=== PATIENT | male | born 1950 | race Caucasian/White ===

== ENCOUNTER 2016-09-25 16:38 | Inpatient (IN) | payer MEDICARE, OTHER ==
--- NOTE | 2016-09-25 16:49 | EDM.PDOC ---
ED HPI GENERAL MEDICAL PROBLEM - General Chief Complaint: General Stated Complaint: fever, fall Time Seen by Provider: 09/25/16 16:45 Source of Information: Reports: Patient, Usp Records (Limited), Old Records History Limitations: Reports: Altered Mental Status, Other - History of Present Illness INITIAL COMMENTS - FREE TEXT/NARRATIVE: The patient was brought to the emergency room via transport vehicle from [facility] in [place] for evaluation of some nonspecific progressive confusion, dyspnea, hypoxia, and fever of 100.6. Prior to transport. He did have a minor fall at 14:45 hours this afternoon with the patient using his walker at that time with no significant injury including head injury, loss of consciousness, pain, etc. He is an extremely poor historian secondary to his confusion and probable baseline mental status Onset: Today, Unknown/Unsure Onset Date: 09/25/16 Onset Time: 14:45 Duration: Constant Location: Reports: Other (No apparent pain) Associated Symptoms: Reports: Confusion, Fever/Chills, Shortness of Breath Treatments SOFTWARE RECRUITER: Reports: Other (see below) (None) - Related Data Allergies Allergy/AdvReac Type Severity Reaction Status Date / Time acetaminophen [From NyQuil] Allergy Cannot Verified 09/25/16 16:53 Remember dextromethorphan Allergy Cannot Verified 09/25/16 16:53 [From NyQuil] Remember doxylamine [From NyQuil] Allergy Cannot Verified 09/25/16 16:53 Remember loxapine Allergy Cannot Verified 09/25/16 16:53 Remember perphenazine Allergy Cannot Verified 09/25/16 16:53 Remember pseudoephedrine [From NyQuil] Allergy Cannot Verified 09/25/16 16:53 Remember thiothixene Allergy Cannot Verified 09/25/16 16:53 Remember Home Meds: Home Meds Aspirin [Halfprin] 81 mg PO DAILY@09/25/16 [History] Atenolol [Tenormin] 25 mg PO DAILY@09/25/16 [History] Benztropine [Cogentin] 1 mg PO 08,20 09/25/16 [History] Calcium Carbonate/Vitamin D3 [Os-[place]ew[place]ne 500+D] 1 each PO BEDTIME 09/25/16 [History] ClonazePAM [KlonoPIN] 1 mg PO 08,15,18 09/25/16 [History] Divalproex Sodium [Depakote ER] 1,000 mg PO BEDTIME 09/25/16 [History] Docusate Sodium [Colace] 200 mg PO ,09/25/16 [History] Docusate Sodium/Sennosides [Senna Plus] 1 tab PO ,09/25/16 [History] Fish Oil/[place]-3 Fatty Acids [Fish Oil] 1 each PO ,09/25/16 [History] Insulin Aspart [NovoLOG] 15 unit SUBCUT TIDAC 09/25/16 [History] Insulin Glarg,Human.Rec.Analog [LantUS] 80 unit SUBCUT DAILY@09/25/16 [ History] Levothyroxine [Synthroid] 50 mcg PO DAILY@09/25/16 [History] Lisinopril [Prinivil] 10 mg PO ,09/25/16 [History] Methyl Salicylate/Menthol [Thera-Gesic Analgesic] 1 applic TP QID PRN 09/25/16 [ History] Multivitamin [Daily Sara] 1 each PO BEDTIME 09/25/16 [History] Potassium Chloride [Klor-Con 10] 10 meq PO ,09/25/16 [History] QUEtiapine [SEROquel] 300 mg PO 06,11,16 09/25/16 [History] Simvastatin [Zocor] 10 mg PO BEDTIME 09/25/16 [History] Tamsulosin [Flomax] 0.4 mg PO BEDTIME 09/25/16 [History] Vitamin E 400 unit PO DAILY@09/25/16 [History] hydrOXYzine HCl [Atarax] 50 mg PO BID PRN 09/25/16 [History] Past Medical History HEENT History: Reports: Allergic Rhinitis, Cataract, Glaucoma, Hard of Hearing, Other (See Below) Other HEENT History: Preglaucoma, bilateral presbycusis, eyelid dermatochalasis Cardiovascular History: Reports: High Cholesterol, Hypertension Respiratory History: Reports: COPD, Other (See Below) Other Respiratory History: COPD by chest x-ray Gastrointestinal History: Reports: Chronic Constipation Genitourinary History: Reports: BPH, Urinary Incontinence Musculoskeletal History: Reports: Arthritis, Osteoarthritis Neurological History: Reports: Other (See Below) Other Neuro History: Chronic resting tremor tremor, generalized weakness Psychiatric History: Reports: Anxiety, Depression, Schizophrenia, Other (See Below) Endocrine/Metabolic History: Reports: Diabetes, Type II, Hypothyroidism, IDDM Social & Family History - Family History Family Medical History: Unobtainable - Living Situation & Occupation Living situation: Reports: Extended Care Facility ([facility] in [place], [facility]) ED ROS GENERAL - Review of Systems Review Of Systems: ROS reveals no pertinent complaints other than HPI. ED EXAM, GENERAL - Physical Exam Exam: See Below Exam Limited By: Altered Mental Status General Appearance: Alert, Mild Distress (Mild dyspnea), Other (Moderate confusion) Eye Exam: Bilateral Eye: EOMI, Normal Inspection (No nystagmus), PERRL Ears: Normal Canal, Normal TMs, Hearing Loss (Mild bilateral presbycusis) Nose: Normal Mucosa, No Blood, Clear Rhinorrhea (Mild bilateral) Throat/Mouth: Normal Lips, Normal Gums. No: Normal Teeth (Complete absent dentition), Normal Oropharynx, Normal Voice, No Airway Compromise, Dysphagia, Perioral Cyanosis Head: Atraumatic, Normocephalic. No: Facial Swelling, Facial Tenderness, Sinus Tenderness Neck: Normal Inspection, Supple, Non-Tender, Full Range of Motion, Carotid Bruit (Mild bilateral carotid bruits). No: Lymphadenopathy (L), Lymphadenopathy (R), Thyromegaly Respiratory/Chest: No Accessory Muscle Use, Chest Non-Tender, Respiratory Distress (Mild), Rales (Diffuse bilateral). No: Pleural Rub, Retractions Cardiovascular: Normal Peripheral Pulses, No JVD, No Murmur, No Rub, Tachycardia (Regular rate). No: No Edema (Dependent edema as below), Gallop/S3 , Gallop/S4, Friction Rub Peripheral Pulses: 2+: Radial (L), Radial (R), Dorsalis Pedis (L), Dorsalis Pedis (R) GI/Abdominal: Normal Bowel Sounds, Soft, Non-Tender, No Organomegaly, No Distention, No Abnormal Bruit, No Mass, Pelvis Stable, Hernia (2 cm nonincarcerated umbilical hernia). No: Guarding (Male) Exam: Deferred Rectal (Males) Exam: Deferred Back Exam: Normal Inspection, Full Range of Motion. No: CVA Tenderness (L), CVA Tenderness (R), Muscle Spasm Extremities: Normal Range of Motion, Non-Tender, Normal Capillary Refill, Pedal Edema (Trace to +1 bilateral pedal/pretibial edema). No: Leg Pain Neurological: Alert, Normal Reflexes (Negative Babinski's), Confused (Moderate) , Disoriented (Time in place), Other (Stable by history chronic resting tremor and head and extremities with borderline cogwheeling) Psychiatric: Normal Affect, Normal Mood Skin Exam: Warm, Dry, Intact, Normal Color, No Rash. No: Diaphoretic, Wound/ Incision Lymphatic: No Adenopathy EKG INTERPRETATION EKG Date: 09/25/16 Time: 17:17 Rhythm: Other (Sinus tachycardia) Rate (Beats/Min): 118 [place]: Normal (Neutral cardiac axis) P-Wave: Present (Mild diffuse biphasic P waves with extreme poor R-wave progression in the anterior leads) QRS: Normal (QRS interval of 0.09 seconds with possible Q waves noted in lead 3) ST-T: Normal QT: Normal NV/PQ Interval: 0.17 seconds Comparison: NA - No Prior EKG EKG Interpretation Comments: 1. No acute ischemic changes 2. Sinus tachycardia Course - Vital Signs Last Recorded V/S: Last Vital Signs Temp 37.2 C 09/25/16 18:30 Pulse 107 H 09/25/16 18:30 Resp 34 H 09/25/16 18:30 BP 137/67 09/25/16 18:30 Pulse Ox 93 L 09/25/16 18:30 Vital Signs - 24 hr 09/25/16 09/25/16 09/25/16 16:38 16:54 17:05 Temperature [ 37.5 C Oral] Temperature [ Temporal] Pulse, 123 H 122 H 119 H Peripheral [ Apical] Respiratory 25 H 26 H 23 H Rate Blood Pressure 173/77 H 167/81 H 118/85 [Left Upper Arm ] O2 Sat by Pulse 87 L 91 L 93 L Oximetry 09/25/16 09/25/16 09/25/16 17:35 18:05 18:30 Temperature [ Oral] Temperature [ 37.2 C Temporal] Pulse, 116 H 111 H 107 H Peripheral [ Apical] Respiratory 27 H 27 H 34 H Rate Blood Pressure 140/79 146/75 H 137/67 [Left Upper Arm ] O2 Sat by Pulse 92 L 93 L 93 L Oximetry - Orders/Labs/Meds Orders: Active Orders 24 hr Category Date Time Status Cardiac Monitoring [RC] . DIRECTED Care 09/25/16 16:51 Active EKG Documentation Completion [RC] ASDIRECTED Care 09/25/16 17:15 Active Oxygen Therapy [RC] CONTINUOUS Care 09/25/16 16:53 Active Peripheral IV Care [RC] . DIRECTED Care 09/25/16 16:53 Active Pulse Oximetry [RC] CONTINUOUS Care 09/25/16 16:53 Active RT Aerosol Therapy [RC] ASDIRECTED Care 09/25/16 16:55 Active Chest 1V Frontal [CR] Stat Exams 09/25/16 16:52 Taken CULTURE BLOOD [BC] Stat Lab 09/25/16 16:55 Received CULTURE BLOOD [BC] Stat Lab 09/25/16 16:55 Received CULTURE SPUTUM + SMEAR [RM] Routine Lab 09/25/16 16:51 Uncollected Sodium Chloride 0.9% [Saline Flush] Med 09/25/16 16:50 Active 10 ml FLUSH ASDIRECTED PRN cefTRIAXone [Rocephin] 1 gm Med 09/25/16 17:45 Active Sodium Chloride 0.9% [Normal Saline] 100 ml IV Q12H Blood Culture x2 Reflex Set [OM.PC] Urgent Oth 09/25/16 16:51 Ordered Obtain Past Medical Record [OM.PC] Urgent Oth 09/25/16 16:53 Active Peripheral IV Insertion Adult [OM.PC] Routine Oth 09/25/16 16:53 Ordered Medication Orders Ceftriaxone Sodium 1 gm/ (Sodium Chloride) 100 mls @ 200 mls/hr IV Q12H LISANDRA Last Admin: 09/25/16 17:45 Dose: 200 mls/hr Sodium Chloride (Saline Flush) 10 ml FLUSH ASDIRECTED PRN PRN Reason: Keep Vein Open Labs: Laboratory Tests 09/25/16 09/25/16 09/25/16 Range/Units 16:55 16:55 16:55 WBC 9.2 (4.0-10.2) K/uL RBC 4.56 (4.33-5.41) M/uL Hgb 14.1 (13.1-16.8) g/dL Hct 39.8 (39.0-49.0) % MCV 87.3 (84.0-98.0) fL MCH 30.9 (28.2-33.3) pg MCHC 35.4 (31.7-36.0) g/dL RDW 14.2 H (11.2-14.1) % Plt Count 125 L (150-350) K/uL Neut % (Auto) 77.3 (45.0-80.0) % Lymph % (Auto) 13.9 (10.0-50.0) % Patrick % (Auto) 8.0 (2.0-14.0) % Eos % (Auto) 0.5 (0.0-5.0) % Baso % (Auto) 0.3 (0.0-2.0) % Neut # (Auto) 7.10 H (1.40-7.00) K/uL Lymph # (Auto) 1.28 (0.50-3.50) K/uL Patrick # (Auto) 0.74 (0.00-1.00) K/uL Eos # (Auto) 0.05 (0.00-0.50) K/uL Baso # (Auto) 0.03 (0.00-0.20) K/uL PT (9.8-11.7) SEC INR APTT (23.5-30.0) SEC D-Dimer, Quantitative 161 (0-400) ng/mL Sodium 137 (136-145) mmol/L Potassium 3.8 (3.5-5.1) mmol/L Chloride 103 (98-107) mmol/L Carbon Dioxide 26.6 (21.0-32.0) mmol/L BUN 19 H (7-18) mg/dL Creatinine 0.88 (0.51-1.17) mg/dL Est Cr Clr Drug Dosing 95.84 mL/min Estimated GFR (MDRD) > 60 mL/min Glucose 191 H (74-106) mg/dL Lactic Acid (0.4-2.0) mmol/L Uric Acid 7.7 H (2.6-7.2) mg/dL Calcium 8.4 L (8.5-10.1) mg/dL Magnesium 1.4 L (1.8-2.4) mg/dL Total Bilirubin 0.5 (0.2-1.0) mg/dL AST 20 (15-37) U/L ALT 26 (12-78) U/L Alkaline Phosphatase 61 (46-116) IU/L Creatine Kinase 70 (26-308) U/L Creatine Kinase Index 0.0 (0.0-2.5) % CK-MB (CK-2) 0.00 (0.00-3.60) ng/mL Troponin I 0.006 (0.000-0.056) ng/mL Ogc-Y-Ipvyulldect Pept 115 (0-125) pg/mL Total Protein 6.5 (6.4-8.2) g/dL Albumin 3.2 L (3.4-5.0) g/dL TSH, Ultra Sensitive 1.763 (0.358-3.740) mIU/mL 09/25/16 09/25/16 Range/Units 16:55 16:55 WBC (4.0-10.2) K/uL RBC (4.33-5.41) M/uL Hgb (13.1-16.8) g/dL Hct (39.0-49.0) % MCV (84.0-98.0) fL MCH (28.2-33.3) pg MCHC (31.7-36.0) g/dL RDW (11.2-14.1) % Plt Count (150-350) K/uL Neut % (Auto) (45.0-80.0) % Lymph % (Auto) (10.0-50.0) % Patrick % (Auto) (2.0-14.0) % Eos % (Auto) (0.0-5.0) % Baso % (Auto) (0.0-2.0) % Neut # (Auto) (1.40-7.00) K/uL Lymph # (Auto) (0.50-3.50) K/uL Patrick # (Auto) (0.00-1.00) K/uL Eos # (Auto) (0.00-0.50) K/uL Baso # (Auto) (0.00-0.20) K/uL PT 11.3 (9.8-11.7) SEC INR 1.1 APTT 27.7 (23.5-30.0) SEC D-Dimer, Quantitative (0-400) ng/mL Sodium (136-145) mmol/L Potassium (3.5-5.1) mmol/L Chloride (98-107) mmol/L Carbon Dioxide (21.0-32.0) mmol/L BUN (7-18) mg/dL Creatinine (0.51-1.17) mg/dL Est Cr Clr Drug Dosing mL/min Estimated GFR (MDRD) mL/min Glucose (74-106) mg/dL Lactic Acid 1.6 (0.4-2.0) mmol/L Uric Acid (2.6-7.2) mg/dL Calcium (8.5-10.1) mg/dL Magnesium (1.8-2.4) mg/dL Total Bilirubin (0.2-1.0) mg/dL AST (15-37) U/L ALT (12-78) U/L Alkaline Phosphatase (46-116) IU/L Creatine Kinase (26-308) U/L Creatine Kinase Index (0.0-2.5) % CK-MB (CK-2) (0.00-3.60) ng/mL Troponin I (0.000-0.056) ng/mL Fuc-C-Rhroluexkzg Pept (0-125) pg/mL Total Protein (6.4-8.2) g/dL Albumin (3.4-5.0) g/dL TSH, Ultra Sensitive (0.358-3.740) mIU/mL Blood cultures 2 collected Meds: Medications Generic Name Dose Route Start Last Admin Trade Name Freq PRN Reason Stop Dose Admin Ceftriaxone Sodium 1 gm/ 100 mls @ 200 mls/hr 09/25/16 17:45 09/25/16 17:45 Sodium Chloride IV 200 mls/hr Q12H LISANDRA Administration Sodium Chloride 10 ml 09/25/16 16:50 Saline Flush FLUSH ASDIRECTED PRN Keep Vein Open Discontinued Medications Generic Name Dose Route Start Last Admin Trade Name Freq PRN Reason Stop Dose Admin Albuterol/Ipratropium 3 ml 09/25/16 16:55 09/25/16 17:10 Duoneb 3.0-0.5 Mg/3 Ml NEB 09/25/16 16:56 3 ml ONETIME ONE Administration - Radiology Interpretation Free Text/Narrative:: monitor and storage bin tender shows sinus tachycardia with heart rate in the 120s, no ectopy or arrhythmia Chest x-ray, portable, shows evidence of moderate COPD and probable pulmonary fibrotic changes with additional probable moderate CHF. Mild prominence of the proximal aortic arch with probable additional right lower lobe pulmonary infiltrates, atelectasis, and/or consolidations laterally. No pneumothorax noted Departure - Departure Time of Disposition: 18:30 Disposition: Admitted As Inpatient 68 Condition: Fair Clinical Impression: IDDM (insulin dependent diabetes mellitus), Mixed anxiety depressive disorder, Confusion, Hyperuricemia, Hypomagnesemia, Hypoalbuminemia, Tremor COPD (chronic obstructive pulmonary disease) Qualifiers: COPD type: emphysema Emphysema type: panlobular Qualified Code(s): J43.1 - Panlobular emphysema CHF (congestive heart failure) Qualifiers: Congestive heart failure type: unspecified congestive heart failure type Congestive heart failure chronicity: acute Qualified Code(s): I50.9 - Heart failure, unspecified Hypertension Qualifiers: Hypertension type: essential hypertension Qualified Code(s): I10 - Essential ( primary) hypertension Hyperlipidemia Qualifiers: Hyperlipidemia type: unspecified Qualified Code(s): E78.5 - Hyperlipidemia, unspecified Osteoarthritis Qualifiers: Osteoarthritis location: multiple joints Osteoarthritis type: primary Qualified Code(s): M15.0 - Primary generalized (osteo)arthritis Pneumonia Qualifiers: Pneumonia type: due to unspecified organism Laterality: right Lung location: lower lobe of lung Qualified Code(s): J18.1 - Lobar pneumonia, unspecified organism - Discharge Information - Problem List & Annotations (1) Pneumonia SNOMED Code(s): 480881826 Code(s): J18.9 - PNEUMONIA, UNSPECIFIED ORGANISM Status: Acute Priority: High Current Visit: Yes Onset Date: 09/25/16 Annotation/Comment:: Likely left lower lobe pneumonia. Blood cultures 2 were collected. Sputum specimen to be collected ERWIN. IV Rocephin therapy initiated in the emergency room. Telephone consultation at 17:[address] Phillips, hospitalist at the [facility], with no bed available in that facility. Patient will be admitted to inpatient care with treatment for his pneumonia, etc. as below. Unique candelario physician assumes care in the a.m. Qualifiers: Pneumonia type: due to unspecified organism Laterality: right Lung location: lower lobe of lung Qualified Code(s): J18.1 - Lobar pneumonia, unspecified organism (2) CHF (congestive heart failure) SNOMED Code(s): 13602091 Code(s): I50.9 - HEART FAILURE, UNSPECIFIED Status: Acute Priority: High Current Visit: Yes Onset Date: 09/25/16 Annotation/Comment:: Probable concomitant mild CHF by today's chest x-ray, however note normal cardiac enzymes and BNP. No acute EKG changes. Repeat EKG and blood work in the a.m. No chest pain or anginal type symptoms, although the patient is a poor historian Qualifiers: Congestive heart failure type: unspecified congestive heart failure type Congestive heart failure chronicity: acute Qualified Code(s): I50.9 - Heart failure, unspecified (3) Hypomagnesemia SNOMED Code(s): 634548155 Code(s): E83.42 - HYPOMAGNESEMIA Status: Acute Priority: Medium Current Visit: Yes Onset Date: 09/25/16 Annotation/Comment:: Newly diagnosed. Initiation of magnesium oxide therapy on admission (4) Confusion SNOMED Code(s): 312485497 Code(s): R41.0 - DISORIENTATION, UNSPECIFIED Status: Acute Priority: High Current Visit: Yes Onset Date: Unknown Annotation/Comment:: Probable confusion however some progression possibly secondary to current pneumonia. Continue to observe closely. Attempt to obtain a urine specimen, however note urinary incontinence. Patient started on IV Rocephin in the emergency room as above (5) Hypoalbuminemia SNOMED Code(s): 102693123 Code(s): E88.09 - OTH DISORDERS OF PLASMA-PROTEIN METABOLISM, NEC Status: Acute Priority: Medium Current Visit: Yes Onset Date: 09/25/16 Annotation/Comment:: Newly diagnosed. Initiate high-protein Glucerna supplements (6) Hyperuricemia SNOMED Code(s): 74842141 Code(s): E79.0 - HYPERURICEMIA W/O SIGNS OF INFLAM ARTHRIT AND TOPHACEOUS DIS Status: Acute Current Visit: Yes Onset Date: 09/25/16 Annotation/ Comment:: Newly diagnosed. No known previous history of gout attack or current arthritic type symptoms. Observe for now (7) COPD (chronic obstructive pulmonary disease) SNOMED Code(s): 04250872 Code(s): J44.9 - CHRONIC OBSTRUCTIVE PULMONARY DISEASE, UNSPECIFIED Status : Acute Priority: High Current Visit: Yes Onset Date: ~09/25/16 Annotation/Comment:: COPD by today's chest x-ray. No previous medical therapy or known PFTs. DuoNeb treatment given in the emergency room with improved symptoms Qualifiers: COPD type: emphysema Emphysema type: panlobular Qualified Code(s): J43.1 - Panlobular emphysema (8) Hypertension SNOMED Code(s): 56008563 Code(s): I10 - ESSENTIAL (PRIMARY) HYPERTENSION Status: Chronic Priority : Medium Current Visit: Yes Annotation/Comment:: Stable in the emergency room Qualifiers: Hypertension type: essential hypertension Qualified Code(s): I10 - Essential (primary) hypertension (9) Hyperlipidemia SNOMED Code(s): 19137239 Code(s): E78.5 - HYPERLIPIDEMIA, UNSPECIFIED Status: Chronic Priority: Medium Current Visit: Yes Annotation/Comment:: Currently under therapy Qualifiers: Hyperlipidemia type: unspecified Qualified Code(s): E78.5 - Hyperlipidemia , unspecified (10) IDDM (insulin dependent diabetes mellitus) SNOMED Code(s): 31088174 Code(s): E11.9 - TYPE 2 DIABETES MELLITUS WITHOUT COMPLICATIONS; 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 (11) Mixed anxiety depressive disorder SNOMED Code(s): 636924350 Code(s): F41.8 - OTHER SPECIFIED ANXIETY DISORDERS Status: Chronic Priority: Medium Current Visit: Yes Annotation/Comment:: Stable by history. Note history of schizophrenia (12) Osteoarthritis SNOMED Code(s): 190617531 Code(s): M19.90 - UNSPECIFIED OSTEOARTHRITIS, UNSPECIFIED SITE Status: Chronic Priority: Medium Current Visit: Yes Annotation/Comment:: As above Qualifiers: Osteoarthritis location: multiple joints Osteoarthritis type: primary Qualified Code(s): M15.0 - Primary generalized (osteo)arthritis (13) Tremor SNOMED Code(s): 06277999 Code(s): R25.1 - TREMOR, UNSPECIFIED Status: Chronic Priority: Medium Current Visit: Yes Annotation/Comment:: Stable chronic resting tremor as above. Mild cogwheeling with possibility of Parkinson's disease. Patient already followed by a neurologist - Problem List Review Problem List Initiated/Reviewed/Updated: Yes - My Orders Last 24 Hours: My Active Orders 09/25/16 16:50 Sodium Chloride 0.9% [Saline Flush] 10 ml FLUSH ASDIRECTED PRN 09/25/16 16:51 Cardiac Monitoring [RC] . DIRECTED CULTURE SPUTUM + SMEAR [RM] Routine Blood Culture x2 Reflex Set [OM.PC] Urgent 09/25/16 16:52 Chest 1V Frontal [CR] Stat 09/25/16 16:53 Oxygen Therapy [RC] CONTINUOUS Peripheral IV Care [RC] . DIRECTED Pulse Oximetry [RC] CONTINUOUS Obtain Past Medical Record [OM.PC] Urgent Peripheral IV Insertion Adult [OM.PC] Routine 09/25/16 16:55 RT Aerosol Therapy [RC] ASDIRECTED CULTURE BLOOD [BC] Stat CULTURE BLOOD [BC] Stat 09/25/16 17:15 EKG Documentation Completion [RC] ASDIRECTED 09/25/16 17:45 cefTRIAXone [Rocephin] 1 gm Sodium Chloride 0.9% [Normal Saline] 100 ml IV Q12H - Assessment/Plan Admission H&P: Please use this note as an admission H&P Last 24 Hours: My Active Orders 09/25/16 16:50 Sodium Chloride 0.9% [Saline Flush] 10 ml FLUSH ASDIRECTED PRN 09/25/16 16:51 Cardiac Monitoring [RC] . DIRECTED CULTURE SPUTUM + SMEAR [RM] Routine Blood Culture x2 Reflex Set [OM.PC] Urgent 09/25/16 16:52 Chest 1V Frontal [CR] Stat 09/25/16 16:53 Oxygen Therapy [RC] CONTINUOUS Peripheral IV Care [RC] . DIRECTED Pulse Oximetry [RC] CONTINUOUS Obtain Past Medical Record [OM.PC] Urgent Peripheral IV Insertion Adult [OM.PC] Routine 09/25/16 16:55 RT Aerosol Therapy [RC] ASDIRECTED CULTURE BLOOD [BC] Stat CULTURE BLOOD [BC] Stat 09/25/16 17:15 EKG Documentation Completion [RC] ASDIRECTED 09/25/16 17:45 cefTRIAXone [Rocephin] 1 gm Sodium Chloride 0.9% [Normal Saline] 100 ml IV Q12H Assessment:: As above Plan: As above. Extensive precautions were given to the patient, who is in agreement with the treatment plan. The patient will require about 3-4 days of inpatient/ acute care secondary to multiple health problems as above.
[2016-09-25] MEDS ORDERED: Albuterol/Ipratropium 3.0-0.5 MG/3 ML Neb Soln NEB ONE (16:55)
[2016-09-25 17:34] LABS: CHLORIDE,CL 103 mmol/L (98-107); SODIUM,NA 137 mmol/L (136-145)
[2016-09-25] MEDS: cefTRIAXone 1 GM in Sodium Chloride 0.9% 100 ML IV SCH (17:45)
[2016-09-25] MEDS ORDERED: hydrOXYzine HCl 50 MG Tab PO PRN (19:13)
[2016-09-25] MEDS ORDERED: Menthol/Methyl Salicylate 85 GM Tube TOP PRN (19:13)
[2016-09-25] MEDS ORDERED: Sodium Chloride 0.9% 10 ML Syringe FLUSH PRN (19:22)
[2016-09-25] MEDS ORDERED: Albuterol 0.083% 2.5 MG/3 ML Neb Soln INH PRN (19:22)
[2016-09-25] MEDS ORDERED: Albuterol/Ipratropium 3.0-0.5 MG/3 ML Neb Soln NEB PRN (19:22)
[2016-09-25] MEDS: Albuterol/Ipratropium 3.0-0.5 MG/3 ML Neb Soln NEB SCH (20:31)
[2016-09-25] MEDS: Budesonide 0.5 MG/2 ML Neb Susp NEB SCH (20:31)
[2016-09-25] MEDS: Divalproex Sodium 250 MG Tab.ER PO SCH (20:31)
[2016-09-25] MEDS: Simvastatin 10 MG Tab PO SCH (20:31)
[2016-09-25] MEDS: Doxycycline 100 MG Cap PO SCH (20:32)
[2016-09-25] MEDS: Furosemide 40 MG/4 ML VIAL IVPUSH SCH (20:32)
[2016-09-25] MEDS: Potassium Chloride 20 MEQ Tab.ER PO SCH (20:32)
[2016-09-25] MEDS: Magnesium Oxide 400 MG Tab PO SCH (20:32)
[2016-09-25] MEDS: Tamsulosin 0.4 MG Cap.ER PO SCH (20:32)
[2016-09-25] MEDS: Fish Oil/Omega-3 Fatty Acids 1 Gm Cap PO SCH (20:37)
[2016-09-25] MEDS: Lisinopril 10 MG Tab PO SCH (20:37)
[2016-09-25] MEDS: Insulin Aspart 100 Units/ML 3 ML Pen SUBCUT SCH ×2 (20:39→21:20)
[2016-09-25] MEDS: Docusate Sodium 100 MG Cap PO SCH (20:40)
[2016-09-25] MEDS: Sodium Chloride 0.9% 10 ML Syringe FLUSH PRN (20:40)
[2016-09-25] MEDS: Benztropine 1 MG Tab PO SCH (20:46)
[2016-09-26] MEDS: Albuterol/Ipratropium 3.0-0.5 MG/3 ML Neb Soln NEB SCH ×4 (02:10→20:18)
[2016-09-26] MEDS: cefTRIAXone 1 GM in Sodium Chloride 0.9% 100 ML IV SCH ×2 (05:24→17:32)
[2016-09-26] MEDS: Atenolol 25 MG Tab PO SCH (05:24)
[2016-09-26] MEDS: Levothyroxine 50 MCG Tab PO SCH (05:29)
[2016-09-26] MEDS: Aspirin 81 MG Tab.EC PO SCH (05:29)
[2016-09-26] MEDS: Lisinopril 10 MG Tab PO SCH ×2 (05:35→20:42)
[2016-09-26] MEDS: Docusate Sodium 100 MG Cap PO SCH ×2 (05:35→20:17)
[2016-09-26] MEDS: QUEtiapine 100 MG Tab PO SCH ×3 (05:35→15:28)
[2016-09-26] MEDS: Fish Oil/Omega-3 Fatty Acids 1 Gm Cap PO SCH ×2 (05:35→20:18)
[2016-09-26] MEDS: Doxycycline 100 MG Cap PO SCH ×2 (07:28→20:08)
[2016-09-26] MEDS: Benztropine 1 MG Tab PO SCH ×2 (07:28→20:17)
[2016-09-26] MEDS: Potassium Chloride 20 MEQ Tab.ER PO SCH ×2 (07:28→17:31)
[2016-09-26] MEDS: Furosemide 40 MG/4 ML VIAL IVPUSH SCH (07:28)
[2016-09-26] MEDS: Magnesium Oxide 400 MG Tab PO SCH ×2 (07:28→17:31)
[2016-09-26] MEDS: Budesonide 0.5 MG/2 ML Neb Susp NEB SCH ×2 (07:28→20:06)
[2016-09-26] MEDS: ClonazePAM 0.5 MG Tab PO SCH ×3 (07:28→17:31)
[2016-09-26] MEDS: Insulin Detemir 100 Units/ML 3 ML Pen SUBCUT SCH (07:29)
[2016-09-26] MEDS: Insulin Aspart 100 Units/ML 3 ML Pen SUBCUT SCH ×7 (07:30→21:10)
[2016-09-26 07:50] LABS: CHLORIDE,CL 106 mmol/L (98-107); SODIUM,NA 143 mmol/L (136-145)
--- NOTE | 2016-09-26 13:10 | PCM.PN ---
- General Info Date of Service: 09/26/16 Admission Dx/Problem (Free Text): Left Lower Lobe pneumonia. Subjective Update: The patient reports he feels much better from admission. He is coughing infrequently with no production of mucous. He denies fever, chills, and bodyaches. He denies other symptoms or complaints. - Patient Data Vitals - most recent: Last Vital Signs Temp 36.8 C 09/26/16 12:00 Pulse 79 09/26/16 12:00 Resp 32 H 09/26/16 12:00 BP 95/52 L 09/26/16 12:00 Pulse Ox 92 L 09/26/16 12:00 Weight - most recent: 115.938 kg I&O - last 24 hours: Intake & Output 09/25/16 09/26/16 09/26/16 22:59 06:59 14:59 Intake Total 220 360 Output Total 500 200 Balance -280 -200 360 Lab Results last 24 hrs: Laboratory Results - last 24 hr 09/25/16 09/26/16 09/26/16 Range/Units 20:31 06:25 06:25 WBC 8.4 (4.0-10.2) K/uL RBC 4.26 L (4.33-5.41) M/uL Hgb 13.0 L (13.1-16.8) g/dL Hct 37.9 L (39.0-49.0) % MCV 89.0 (84.0-98.0) fL MCH 30.5 (28.2-33.3) pg MCHC 34.3 (31.7-36.0) g/dL RDW 14.4 H (11.2-14.1) % Plt Count 127 L (150-350) K/uL Neut % (Auto) 68.7 (45.0-80.0) % Lymph % (Auto) 20.8 (10.0-50.0) % [place] % (Auto) 9.9 (2.0-14.0) % Eos % (Auto) 0.4 (0.0-5.0) % Baso % (Auto) 0.2 (0.0-2.0) % Neut # (Auto) 5.76 (1.40-7.00) K/uL Lymph # (Auto) 1.74 (0.50-3.50) K/uL [place] # (Auto) 0.83 (0.00-1.00) K/uL Eos # (Auto) 0.03 (0.00-0.50) K/uL Baso # (Auto) 0.02 (0.00-0.20) K/uL Sodium 143 (136-145) mmol/L Potassium 3.6 (3.5-5.1) mmol/L Chloride 106 (98-107) mmol/L Carbon Dioxide 29.0 (21.0-32.0) mmol/L BUN 18 (7-18) mg/dL Creatinine 0.89 (0.51-1.17) mg/dL Est Cr Clr Drug Dosing 94.76 mL/min Estimated GFR (MDRD) > 60 mL/min Glucose 171 H (74-106) mg/dL POC Glucose 191 H (65-110) mg/dl Hemoglobin A1c (4.3-5.7) % Calcium 7.8 L (8.5-10.1) mg/dL Total Bilirubin 0.6 (0.2-1.0) mg/dL AST 16 (15-37) U/L ALT 20 (12-78) U/L Alkaline Phosphatase 49 (46-116) IU/L Creatine Kinase 74 (26-308) U/L Creatine Kinase Index 0.0 (0.0-2.5) % CK-MB (CK-2) 0.00 (0.00-3.60) ng/mL Troponin I 0.010 (0.000-0.056) ng/mL Wyd-X-Dslnahpughx Pept 130 H (0-125) pg/mL Total Protein 6.2 L (6.4-8.2) g/dL Albumin 2.9 L (3.4-5.0) g/dL Triglycerides 204 H (30-150) mg/dL Cholesterol 146 (100-200) mg/dL LDL Cholesterol, Calc 74 (0-100) mg/dL HDL Cholesterol 31 L (40-60) mg/dL 09/26/16 09/26/16 09/26/16 Range/Units 06:25 07:11 11:13 WBC (4.0-10.2) K/uL RBC (4.33-5.41) M/uL Hgb (13.1-16.8) g/dL Hct (39.0-49.0) % MCV (84.0-98.0) fL MCH (28.2-33.3) pg MCHC (31.7-36.0) g/dL RDW (11.2-14.1) % Plt Count (150-350) K/uL Neut % (Auto) (45.0-80.0) % Lymph % (Auto) (10.0-50.0) % [place] % (Auto) (2.0-14.0) % Eos % (Auto) (0.0-5.0) % Baso % (Auto) (0.0-2.0) % Neut # (Auto) (1.40-7.00) K/uL Lymph # (Auto) (0.50-3.50) K/uL [place] # (Auto) (0.00-1.00) K/uL Eos # (Auto) (0.00-0.50) K/uL Baso # (Auto) (0.00-0.20) K/uL Sodium (136-145) mmol/L Potassium (3.5-5.1) mmol/L Chloride (98-107) mmol/L Carbon Dioxide (21.0-32.0) mmol/L BUN (7-18) mg/dL Creatinine (0.51-1.17) mg/dL Est Cr Clr Drug Dosing mL/min Estimated GFR (MDRD) mL/min Glucose (74-106) mg/dL POC Glucose 144 H 228 H (65-110) mg/dl Hemoglobin A1c 6.9 H (4.3-5.7) % Calcium (8.5-10.1) mg/dL Total Bilirubin (0.2-1.0) mg/dL AST (15-37) U/L ALT (12-78) U/L Alkaline Phosphatase (46-116) IU/L Creatine Kinase (26-308) U/L Creatine Kinase Index (0.0-2.5) % CK-MB (CK-2) (0.00-3.60) ng/mL Troponin I (0.000-0.056) ng/mL Ldy-K-Hslgvbypbil Pept (0-125) pg/mL Total Protein (6.4-8.2) g/dL Albumin (3.4-5.0) g/dL Triglycerides (30-150) mg/dL Cholesterol (100-200) mg/dL LDL Cholesterol, Calc (0-100) mg/dL HDL Cholesterol (40-60) mg/dL Med Orders - Current: Current Medications Albuterol (Proventil Neb Soln) 2.5 mg INH Q2H PRN PRN Reason: SHORTNESS OF BREATH Albuterol/Ipratropium (Duoneb 3.0-0.5 Mg/3 Ml) 3 ml NEB Q4HRRT PRN PRN Reason: Dyspnea Albuterol/Ipratropium (Duoneb 3.0-0.5 Mg/3 Ml) 3 ml NEB Q6HRRT [facility] Last Admin: 09/26/16 07:28 Dose: 3 ml Aspirin (Halfprin) 81 mg PO DAILY@06 [facility] Last Admin: 09/26/16 05:29 Dose: 81 mg Atenolol (Tenormin) 25 mg PO DAILY@06 [facility] Last Admin: 09/26/16 05:24 Dose: 25 mg Benztropine Mesylate (Cogentin) 1 mg PO 08,20 [facility] Last Admin: 09/26/16 07:28 Dose: 1 mg Budesonide (Pulmicort) 0.5 mg NEB BIDRT [facility] Last Admin: 09/26/16 07:28 Dose: 0.5 mg Clonazepam (Klonopin) 1 mg PO 08,15,18 [facility] Last Admin: 09/26/16 07:28 Dose: 1 mg Divalproex Sodium (Depakote Er) 1,000 mg PO BEDTIME [facility] Last Admin: 09/25/16 20:31 Dose: 1,000 mg Docusate Sodium (Colace) 200 mg PO ,20 [facility] Last Admin: 09/26/16 05:35 Dose: 200 mg Doxycycline Hyclate (Vibramycin) 100 mg PO Q12HR [facility] Last Admin: 09/26/16 07:28 Dose: 100 mg Fish Oil (Fish Oil) 1 gm PO ,20 [facility] Last Admin: 09/26/16 05:35 Dose: 1 gm Furosemide (Lasix) 40 mg IVPUSH DAILY [facility] Hydroxyzine HCl (Atarax) 50 mg PO BID PRN PRN Reason: Anxiety Ceftriaxone Sodium 1 gm/ (Sodium Chloride) 100 mls @ 200 mls/hr IV Q12H [facility] Last Admin: 09/26/16 05:24 Dose: 200 mls/hr Insulin Aspart (Novolog) 15 unit SUBCUT TIDAC [facility] Last Admin: 09/26/16 11:15 Dose: 15 unit Insulin Aspart (Novolog) 0 unit SUBCUT ACBED [facility] PRN Reason: Protocol Last Admin: 09/26/16 11:18 Dose: 6 units Insulin Detemir (Levemir) 80 unit SUBCUT DAILY@07 [facility] Last Admin: 09/26/16 07:29 Dose: 80 unit Levothyroxine Sodium (Synthroid) 50 mcg PO DAILY@06 [facility] Last Admin: 09/26/16 05:29 Dose: 50 mcg Lisinopril (Prinivil) 10 mg PO 20 [facility] Last Admin: 09/26/16 05:35 Dose: 10 mg Magnesium Oxide (Magnesium Oxide) 400 mg PO BID [facility] Last Admin: 09/26/16 07:28 Dose: 400 mg Methyl Salicylate (Icy Hot Cream) 0 gm TOP QID PRN PRN Reason: sore muscles Potassium Chloride (Klor-Con M20) 20 meq PO BID [facility] Last Admin: 09/26/16 07:28 Dose: 20 meq Quetiapine Fumarate (Seroquel) 300 mg PO 06,11,16 [facility] Last Admin: 09/26/16 11:14 Dose: 300 mg Senna/Docusate Sodium (Senna Plus) 1 tab PO [facility] Last Admin: 09/26/16 05:35 Dose: 1 tab Simvastatin (Zocor) 10 mg PO BEDTIME [facility] Last Admin: 09/25/16 20:31 Dose: 10 mg Sodium Chloride (Saline Flush) 10 ml FLUSH ASDIRECTED PRN PRN Reason: Keep Vein Open Last Admin: 09/25/16 20:40 Dose: 10 ml Sodium Chloride (Saline Flush) 10 ml FLUSH Q12H PRN PRN Reason: Keep Vein Open Tamsulosin HCl (Flomax) 0.4 mg PO BEDTIME [facility] Last Admin: 09/25/16 20:32 Dose: 0.4 mg Discontinued Medications Albuterol/Ipratropium (Duoneb 3.0-0.5 Mg/3 Ml) 3 ml NEB ONETIME ONE Stop: 09/25/16 16:56 Last Admin: 09/25/16 17:10 Dose: 3 ml Furosemide (Lasix) 40 mg IVPUSH Q12H [facility] Last Admin: 09/26/16 07:28 Dose: Not Given - Exam Quality Assessment: supplemental oxygen (4 L) General: alert, oriented HEENT: Pupils equal, Pupils reactive, EOMI, Mucous membr. moist/pink Neck: supple Lungs: Clear to auscultation, Normal respiratory effort. No: Crackles, Rales, Rhonchi, Wheezing Cardiovascular: Regular Rate, Regular Rhythm Abdomen: bowel sounds present, soft, no tenderness, no distension Back Exam: Normal Inspection, Full Range of Motion. No: CVA Tenderness (L), CVA Tenderness (R), Paraspinal Tenderness, Vertebral Tenderness Extremities: no edema Peripheral Pulses: 2+: Radial (L), Radial (R), Dorsalis Pedis (L), Dorsalis Pedis (R) Skin: warm, dry, intact Neurological: no new focal deficit Psy/Mental Status: alert, normal affect, normal mood - Problem List & Annotations (1) Pneumonia SNOMED Code(s): 328955953 Code(s): J18.9 - PNEUMONIA, UNSPECIFIED ORGANISM Status: Acute Priority: High Current Visit: Yes Onset Date: 09/25/16 Qualifiers: Pneumonia type: due to unspecified organism Laterality: left Lung location: lower lobe of lung Qualified Code(s): J18.1 - Lobar pneumonia, unspecified organism Annotation/Comment:: Likely left lower lobe pneumonia. Blood cultures 2 were collected and pending. Sputum cultures pending. Started on Rocephin but but [place] [facility] consider it nosocomial pneumonia. Will discontinue Rocephin and start Levaquin. Will continue Pulmicort as no need for IV steroids at this time. (2) COPD (chronic obstructive pulmonary disease) SNOMED Code(s): 48462018 Code(s): J44.9 - CHRONIC OBSTRUCTIVE PULMONARY DISEASE, UNSPECIFIED Status : Acute Priority: High Current Visit: Yes Onset Date: ~09/25/16 Qualifiers: COPD type: emphysema Emphysema type: panlobular Qualified Code(s): J43.1 - Panlobular emphysema Annotation/Comment:: COPD by CXR on admission. No previous medical therapy or known PFTs. No signs/symptoms currently of exacerbation. (3) CHF (congestive heart failure) SNOMED Code(s): 11797907 Code(s): I50.9 - HEART FAILURE, UNSPECIFIED Status: Acute Priority: High Current Visit: Yes Onset Date: 09/25/16 Qualifiers: Congestive heart failure type: unspecified congestive heart failure type Congestive heart failure chronicity: acute Qualified Code(s): I50.9 - Heart failure, unspecified Annotation/Comment:: Probable concomitant mild CHF by CXR in ER. No signs/ symptoms clinically at this time. (4) Hypoalbuminemia SNOMED Code(s): 026294222 Code(s): E88.09 - [facility] DISORDERS OF PLASMA-PROTEIN METABOLISM, NEC Status: Acute Priority: Medium Current Visit: Yes Onset Date: 09/25/16 Annotation/Comment:: Newly diagnosed. Continue high-protein Glucerna supplements (5) Hyperlipidemia SNOMED Code(s): 63398557 Code(s): E78.5 - HYPERLIPIDEMIA, UNSPECIFIED Status: Chronic Priority: Medium Current Visit: Yes Qualifiers: Hyperlipidemia type: unspecified Qualified Code(s): E78.5 - Hyperlipidemia , unspecified Annotation/Comment:: Currently under therapy (6) IDDM (insulin dependent diabetes mellitus) SNOMED Code(s): 75095907 Code(s): E11.9 - TYPE 2 DIABETES MELLITUS WITHOUT COMPLICATIONS; Z79.4 - [facility] (CURRENT) USE OF INSULIN Status: Chronic Priority: Medium Current Visit: Yes Annotation/Comment:: Hgb A1C 6.7. Reasonable control on current regimen. (7) Mixed anxiety depressive disorder SNOMED Code(s): 169650441 Code(s): F41.8 - OTHER SPECIFIED ANXIETY DISORDERS Status: Chronic Priority: Medium Current Visit: Yes Annotation/Comment:: Stable by history. Note history of schizophrenia - Problem List Review Problem List Initiated/Reviewed/Updated: Yes - My Orders Last 24 Hours: My Active Orders 09/27/16 08:00 Furosemide [Lasix] 40 mg IVPUSH DAILY - Plan Plan:: As above.
[2016-09-26] MEDS ORDERED: Sodium Chloride 0.9% 1,000 ML IV SCH (17:45)
[2016-09-26] MEDS: Simvastatin 10 MG Tab PO SCH (20:08)
[2016-09-26] MEDS: Divalproex Sodium 250 MG Tab.ER PO SCH (20:08)
[2016-09-26] MEDS: Tamsulosin 0.4 MG Cap.ER PO SCH (20:08)
[2016-09-27] MEDS ORDERED: Ibuprofen 400 MG Tab PO PRN (00:14)
[2016-09-27] MEDS: Albuterol/Ipratropium 3.0-0.5 MG/3 ML Neb Soln NEB SCH ×2 (01:57→07:37)
[2016-09-27] MEDS: cefTRIAXone 1 GM in Sodium Chloride 0.9% 100 ML IV SCH (05:15)
[2016-09-27] MEDS: Docusate Sodium 100 MG Cap PO SCH (05:16)
[2016-09-27] MEDS: Fish Oil/Omega-3 Fatty Acids 1 Gm Cap PO SCH (05:16)
[2016-09-27] MEDS: Lisinopril 10 MG Tab PO SCH (05:16)
[2016-09-27] MEDS: Aspirin 81 MG Tab.EC PO SCH (05:16)
[2016-09-27] MEDS: Levothyroxine 50 MCG Tab PO SCH (05:17)
[2016-09-27] MEDS: Atenolol 25 MG Tab PO SCH (05:17)
[2016-09-27] MEDS: Sodium Chloride 0.9% 10 ML Syringe FLUSH PRN (05:18)
[2016-09-27] MEDS: QUEtiapine 100 MG Tab PO SCH ×2 (05:23→11:38)
[2016-09-27 07:24] LABS: CHLORIDE,CL 108 mmol/L (98-107); SODIUM,NA 144 mmol/L (136-145)
[2016-09-27] MEDS: Benztropine 1 MG Tab PO SCH (07:36)
[2016-09-27] MEDS: Magnesium Oxide 400 MG Tab PO SCH (07:36)
[2016-09-27] MEDS: ClonazePAM 0.5 MG Tab PO SCH (07:36)
[2016-09-27] MEDS: Doxycycline 100 MG Cap PO SCH (07:36)
[2016-09-27] MEDS: Potassium Chloride 20 MEQ Tab.ER PO SCH (07:36)
[2016-09-27] MEDS: Insulin Detemir 100 Units/ML 3 ML Pen SUBCUT SCH (07:37)
[2016-09-27] MEDS: Insulin Aspart 100 Units/ML 3 ML Pen SUBCUT SCH ×4 (07:37→11:40)
[2016-09-27] MEDS: Budesonide 0.5 MG/2 ML Neb Susp NEB SCH (07:37)
[2016-09-27] MEDS ORDERED: Furosemide 40 MG/4 ML VIAL IVPUSH SCH (08:00)
[2016-09-27 11:56] VITALS: BP 145/86
--- NOTE | 2016-09-27 12:52 | PCM.DCSUM1 ---
Discharge Summary - Hospital Course Free Text/Narrative:: Admitted 09/25/2016 with LLL pneumonia and hypoxia. Oxygen per nasal cannula, albuterol and Duoneb nebulizers, and started on IV Rocephin and PO Doxycycline. Has had progressive improvement and was weaned off oxygen with oxygen saturation of 97% on room air prior to discharge. Will discharge with Omnicef 300 mg PO Q12H for 7 days, Doxycycline 100 mg PO Q12H for 7 days, and Medrol dose pack. Will follow up with PCP this week. Return to ER instructions also provided. - Discharge Data Discharge Date: 09/27/16 Discharge Disposition: Home, Self-Care 01 Condition: Good - Discharge Diagnosis/Problem(s) (1) Pneumonia SNOMED Code(s): 599004004 ICD Code: J18.9 - PNEUMONIA, UNSPECIFIED ORGANISM Status: Acute Priority : High Current Visit: Yes Onset Date: 09/25/16 Problem Details: Likely left lower lobe pneumonia. Blood cultures 2 were collected and NGTD. Sputum cultures pending. Treated with Rocephin and Doxycycline. Will discharge on Omnicef and Doxycycline and Medrol Dose Pack. Qualifiers: Pneumonia type: due to unspecified organism Laterality: left Lung location: lower lobe of lung Qualified Code(s): J18.1 - Lobar pneumonia, unspecified organism (2) COPD (chronic obstructive pulmonary disease) SNOMED Code(s): 70635986 ICD Code: J44.9 - CHRONIC OBSTRUCTIVE PULMONARY DISEASE, UNSPECIFIED Status : Acute Priority: High Current Visit: Yes Onset Date: ~09/25/16 Problem Details: COPD by CXR on admission. No previous medical therapy or known PFTs. No signs/symptoms currently of exacerbation. Qualifiers: COPD type: emphysema Emphysema type: panlobular Qualified Code(s): J43.1 - Panlobular emphysema (3) CHF (congestive heart failure) SNOMED Code(s): 15344622 ICD Code: I50.9 - HEART FAILURE, UNSPECIFIED Status: Acute Priority: High Current Visit: Yes Onset Date: 09/25/16 Problem Details: Probable concomitant mild CHF by CXR in ER. No signs/symptoms clinically at this time. Qualifiers: Congestive heart failure type: unspecified congestive heart failure type Congestive heart failure chronicity: acute Qualified Code(s): I50.9 - Heart failure, unspecified (4) Hypoalbuminemia SNOMED Code(s): 406357727 ICD Code: E88.09 - OTH DISORDERS OF PLASMA-PROTEIN METABOLISM, NEC Status: Acute Priority: Medium Current Visit: Yes Onset Date: 09/25/16 Problem Details: Newly diagnosed. Continue high-protein Glucerna supplements (5) Hyperlipidemia SNOMED Code(s): 76073329 ICD Code: E78.5 - HYPERLIPIDEMIA, UNSPECIFIED Status: Chronic Priority: Medium Current Visit: Yes Problem Details: Currently under therapy Qualifiers: Hyperlipidemia type: unspecified Qualified Code(s): E78.5 - Hyperlipidemia , unspecified (6) IDDM (insulin dependent diabetes mellitus) SNOMED Code(s): 68305524 ICD Code: E11.9 - TYPE 2 DIABETES MELLITUS WITHOUT COMPLICATIONS; Z79.4 - CERTIFIED ART THERAPIST (CURRENT) USE OF INSULIN Status: Chronic Priority: Medium Current Visit: Yes Problem Details: Hgb A1C 6.9. Reasonable control on current regimen. (7) Mixed anxiety depressive disorder SNOMED Code(s): 945188815 ICD Code: F41.8 - OTHER SPECIFIED ANXIETY DISORDERS Status: Chronic Priority: Medium Current Visit: Yes Problem Details: Stable by history. Note history of schizophrenia - Patient Instructions Diet: Usual Diet as Tolerated Activity: As Tolerated Driving: Do Not Drive Showering/Bathing: May Shower Notify Provider of: Fever Other/Special Instructions: 1. Follow up with PCP this week s/p hospitalization for pneumonia. 2. Return to ER with fever > 101 F, chest pain, shortness of breath, wheezing, hypoxia, mental status changes, or other emergent concerns. - Discharge Plan Prescriptions/Med Rec: Albuterol [Proventil Neb Soln] 2.5 mg NEB Q4HRRT PRN #50 neb PRN Reason: Shortness Of Breath Cefdinir [Omnicef] 300 mg PO Q12H #14 cap Doxycycline [Vibramycin] 100 mg PO Q12H #14 cap methylPREDNISolone [Medrol] 4 mg PO ASDIRECTED #1 tab.ds.pk Home Medications: Home Meds Aspirin [Halfprin] 81 mg PO DAILY@09/25/16 [History] Atenolol [Tenormin] 25 mg PO DAILY@09/25/16 [History] Benztropine [Cogentin] 1 mg PO ,09/25/16 [History] Calcium Carbonate/Vitamin D3 [Os-[place] 500+D] 1 each PO BEDTIME 09/25/16 [History] ClonazePAM [KlonoPIN] 1 mg PO 08,15,18 09/25/16 [History] Divalproex Sodium [Depakote ER] 1,000 mg PO BEDTIME 09/25/16 [History] Docusate Sodium [Colace] 200 mg PO ,09/25/16 [History] Docusate Sodium/Sennosides [Senna Plus] 1 tab PO ,09/25/16 [History] Fish Oil/[place]-3 Fatty Acids [Fish Oil] 1 each PO ,09/25/16 [History] Insulin Aspart [NovoLOG] 15 unit SUBCUT TIDAC 09/25/16 [History] Insulin Glarg,Human.Rec.Analog [LantUS] 80 unit SUBCUT DAILY@09/25/16 [ History] Levothyroxine [Synthroid] 50 mcg PO DAILY@09/25/16 [History] Lisinopril [Prinivil] 10 mg PO ,09/25/16 [History] Methyl Salicylate/Menthol [Thera-Gesic Analgesic] 1 applic TP QID PRN 09/25/16 [ History] Multivitamin [Daily Sara] 1 each PO BEDTIME 09/25/16 [History] Potassium Chloride [Klor-Con 10] 10 meq PO ,09/25/16 [History] QUEtiapine [SEROquel] 300 mg PO 06,11,16 09/25/16 [History] Simvastatin [Zocor] 10 mg PO BEDTIME 09/25/16 [History] Tamsulosin [Flomax] 0.4 mg PO BEDTIME 09/25/16 [History] Vitamin E 400 unit PO DAILY@09/25/16 [History] hydrOXYzine HCl [Atarax] 50 mg PO BID PRN 09/25/16 [History] Albuterol [Proventil Neb Soln] 2.5 mg NEB Q4HRRT PRN #50 neb 09/27/16 [Rx] Cefdinir [Omnicef] 300 mg PO Q12H #14 cap 09/27/16 [Rx] Doxycycline [Vibramycin] 100 mg PO Q12H #14 cap 09/27/16 [Rx] methylPREDNISolone [Medrol] 4 mg PO ASDIRECTED #1 tab.ds.pk 09/27/16 [Rx] Patient Handouts: Community-Acquired Pneumonia, Adult, [facility] Forms: ED Department Discharge Referrals: Ramona Barone MD [Primary Care Provider] - - Patient Data Vitals - Most Recent: Last Vital Signs Temp 36.4 C 09/27/16 11:54 Pulse 79 09/27/16 11:54 Resp 24 H 09/27/16 11:54 BP 145/86 H 09/27/16 11:54 Pulse Ox 97 09/27/16 11:54 Weight - Most Recent: 117.282 kg I&O - Last 24 hours: Intake & Output 09/26/16 09/27/16 09/27/16 22:59 06:59 14:59 Intake Total 866 451 3562 Balance 111 635 [id number] Lab Results - Last 24 hrs: Laboratory Results - last 24 hr 09/26/16 09/26/16 09/27/16 Range/Units 16:50 21:09 07:05 WBC (4.0-10.2) K/uL RBC (4.33-5.41) M/uL Hgb (13.1-16.8) g/dL Hct (39.0-49.0) % MCV (84.0-98.0) fL MCH (28.2-33.3) pg MCHC (31.7-36.0) g/dL RDW (11.2-14.1) % Plt Count (150-350) K/uL Neut % (Auto) (45.0-80.0) % Lymph % (Auto) (10.0-50.0) % [place] % (Auto) (2.0-14.0) % Eos % (Auto) (0.0-5.0) % Baso % (Auto) (0.0-2.0) % Neut # (Auto) (1.40-7.00) K/uL Lymph # (Auto) (0.50-3.50) K/uL [place] # (Auto) (0.00-1.00) K/uL Eos # (Auto) (0.00-0.50) K/uL Baso # (Auto) (0.00-0.20) K/uL Sodium 144 (136-145) mmol/L Potassium 4.6 (3.5-5.1) mmol/L Chloride 108 H (98-107) mmol/L Carbon Dioxide 31.3 (21.0-32.0) mmol/L BUN 21 H (7-18) mg/dL Creatinine 0.99 (0.51-1.17) mg/dL Est Cr Clr Drug Dosing 85.19 mL/min Estimated GFR (MDRD) > 60 mL/min Glucose 124 H (74-106) mg/dL POC Glucose 251 H* 230 H (65-110) mg/dl Calcium 8.3 L (8.5-10.1) mg/dL Total Bilirubin 0.4 (0.2-1.0) mg/dL AST 19 (15-37) U/L ALT 25 (12-78) U/L Alkaline Phosphatase 50 (46-116) IU/L C-Reactive Protein 8.5 H (<=0.9) mg/dL Total Protein 6.6 (6.4-8.2) g/dL Albumin 2.9 L (3.4-5.0) g/dL 09/27/16 09/27/16 Range/Units 07:05 07:13 WBC 7.2 (4.0-10.2) K/uL RBC 4.26 L (4.33-5.41) M/uL Hgb 13.0 L (13.1-16.8) g/dL Hct 38.6 L (39.0-49.0) % MCV 90.6 (84.0-98.0) fL MCH 30.5 (28.2-33.3) pg MCHC 33.7 (31.7-36.0) g/dL RDW 14.3 H (11.2-14.1) % Plt Count 130 L (150-350) K/uL Neut % (Auto) 62.2 (45.0-80.0) % Lymph % (Auto) 26.8 (10.0-50.0) % [place] % (Auto) 8.9 (2.0-14.0) % Eos % (Auto) 1.8 (0.0-5.0) % Baso % (Auto) 0.3 (0.0-2.0) % Neut # (Auto) 4.50 (1.40-7.00) K/uL Lymph # (Auto) 1.94 (0.50-3.50) K/uL [place] # (Auto) 0.64 (0.00-1.00) K/uL Eos # (Auto) 0.13 (0.00-0.50) K/uL Baso # (Auto) 0.02 (0.00-0.20) K/uL Sodium (136-145) mmol/L Potassium (3.5-5.1) mmol/L Chloride (98-107) mmol/L Carbon Dioxide (21.0-32.0) mmol/L BUN (7-18) mg/dL Creatinine (0.51-1.17) mg/dL Est Cr Clr Drug Dosing mL/min Estimated GFR (MDRD) mL/min Glucose (74-106) mg/dL POC Glucose 100 (65-110) mg/dl Calcium (8.5-10.1) mg/dL Total Bilirubin (0.2-1.0) mg/dL AST (15-37) U/L ALT (12-78) U/L Alkaline Phosphatase (46-116) IU/L C-Reactive Protein (<=0.9) mg/dL Total Protein (6.4-8.2) g/dL Albumin (3.4-5.0) g/dL Med Orders - Current: Current Medications Albuterol (Proventil Neb Soln) 2.5 mg INH Q2H PRN PRN Reason: SHORTNESS OF BREATH Albuterol/Ipratropium (Duoneb 3.0-0.5 Mg/3 Ml) 3 ml NEB Q4HRRT PRN PRN Reason: Dyspnea Albuterol/Ipratropium (Duoneb 3.0-0.5 Mg/3 Ml) 3 ml NEB Q6HRRT [facility] Last Admin: 09/27/16 07:37 Dose: 3 ml Aspirin (Halfprin) 81 mg PO DAILY@ [facility] Last Admin: 09/27/16 05:16 Dose: 81 mg Atenolol (Tenormin) 25 mg PO DAILY@06 [facility] Last Admin: 09/27/16 05:17 Dose: 25 mg Benztropine Mesylate (Cogentin) 1 mg PO 08 [facility] Last Admin: 09/27/16 07:36 Dose: 1 mg Budesonide (Pulmicort) 0.5 mg NEB BIDRT [facility] Last Admin: 09/27/16 07:37 Dose: 0.5 mg Clonazepam (Klonopin) 1 mg PO 08,,18 [facility] Last Admin: 09/27/16 07:36 Dose: 1 mg Divalproex Sodium (Depakote Er) 1,000 mg PO BEDTIME [facility] Last Admin: 09/26/16 20:08 Dose: 1,000 mg Docusate Sodium (Colace) 200 mg PO ,20 [facility] Last Admin: 09/27/16 05:16 Dose: 200 mg Doxycycline Hyclate (Vibramycin) 100 mg PO Q12HR [facility] Last Admin: 09/27/16 07:36 Dose: 100 mg Fish Oil (Fish Oil) 1 gm PO [facility] Last Admin: 09/27/16 05:16 Dose: 1 gm Furosemide (Lasix) 40 mg IVPUSH DAILY [facility] Last Admin: 09/27/16 07:37 Dose: Not Given Hydroxyzine HCl (Atarax) 50 mg PO BID PRN PRN Reason: Anxiety Ceftriaxone Sodium 1 gm/ (Sodium Chloride) 100 mls @ 200 mls/hr IV Q12H [facility] Last Admin: 09/27/16 05:15 Dose: 200 mls/hr Sodium Chloride (Normal Saline) 1,000 mls @ 30 mls/hr IV ASDIRECTED [facility] [place] Last Admin: 09/26/16 17:43 Dose: 30 mls/hr Ibuprofen (Motrin) 400 - 800 mg PO Q6H PRN PRN Reason: Fever Last Admin: 09/27/16 00:25 Dose: 400 mg Insulin Aspart (Novolog) 15 unit SUBCUT TIDAC [facility] [place] Last Admin: 09/27/16 11:40 Dose: 15 unit Insulin Aspart (Novolog) 0 unit SUBCUT ACBED [facility] [place] PRN Reason: Protocol Last Admin: 09/27/16 11:39 Dose: 4 units Insulin Detemir (Levemir) 80 unit SUBCUT DAILY@07 [facility] [place] Last Admin: 09/27/16 07:37 Dose: 80 unit Levothyroxine Sodium (Synthroid) 50 mcg PO DAILY@06 [facility] [place] Last Admin: 09/27/16 05:17 Dose: 50 mcg Lisinopril (Prinivil) 10 mg PO ,20 [facility] [place] Last Admin: 09/27/16 05:16 Dose: 10 mg Magnesium Oxide (Magnesium Oxide) 400 mg PO BID [facility] [place] Last Admin: 09/27/16 07:36 Dose: 400 mg Methyl Salicylate (Icy Hot Cream) 0 gm TOP QID PRN PRN Reason: sore muscles Potassium Chloride (Klor-Con M20) 20 meq PO BID [facility] [place] Last Admin: 09/27/16 07:36 Dose: 20 meq Quetiapine Fumarate (Seroquel) 300 mg PO 06,,16 [facility] [place] Last Admin: 09/27/16 11:38 Dose: 300 mg Senna/Docusate Sodium (Senna Plus) 1 tab PO , [facility] [place] Last Admin: 09/27/16 05:16 Dose: 1 tab Simvastatin (Zocor) 10 mg PO BEDTIME [facility] [place] Last Admin: 09/26/16 20:08 Dose: 10 mg Sodium Chloride (Saline Flush) 10 ml FLUSH ASDIRECTED PRN PRN Reason: Keep Vein Open Last Admin: 09/27/16 05:18 Dose: 10 ml Sodium Chloride (Saline Flush) 10 ml FLUSH Q12H PRN PRN Reason: Keep Vein Open Tamsulosin HCl (Flomax) 0.4 mg PO BEDTIME [facility] [place] Last Admin: 09/26/16 20:08 Dose: 0.4 mg Discontinued Medications Albuterol/Ipratropium (Duoneb 3.0-0.5 Mg/3 Ml) 3 ml NEB ONETIME ONE Stop: 09/25/16 16:56 Last Admin: 09/25/16 17:10 Dose: 3 ml Furosemide (Lasix) 40 mg IVPUSH Q12H [facility] [place] Last Admin: 09/26/16 07:28 Dose: Not Given - Exam General: Reports: alert, oriented HEENT: Reports: Pupils equal, Pupils reactive, EOMI, Mucous membr. moist/pink Neck: Reports: supple Lungs: Reports: Clear to auscultation, Normal respiratory effort Cardiovascular: Reports: Regular Rate, Regular Rhythm, No Murmurs. Denies: Gallops, Rubs Abdomen: Reports: bowel sounds present, soft, no tenderness, no distension Extremities: Reports: no edema, normal pulses, no tenderness/swelling, no clubbing, no cyanosis Skin: Reports: warm, dry, intact Neurological: Reports: no new focal deficit Psy/Mental Status: Reports: alert, normal affect, normal mood *Q Meaningful Use (DIS) - VTE *Q VTE Criteria *Q: - Stroke *Q Stroke Criteria *Q: - AMI *Q AMI Criteria *Q:
== END 2016-09-27 13:32 | disposition home or self-care (01) | DRG 195 ==
LOC: LL.ED 16:38 → UNDOADMIN 18:03 → LL.MS 18:03 → UNDODISIN 09-27 13:32
PROVIDERS: ADMIT Family Medicine; ATTEND Family Medicine
DX: J18.1 Lobar pneumonia, unspecified organism (principal); R09.02 Hypoxemia; E11.9 Type 2 diabetes mellitus without complications; F20.9 Schizophrenia, unspecified; E03.9 Hypothyroidism, unspecified; I11.0 Hypertensive heart disease with heart failure; I50.9 Heart failure, unspecified; E83.42 Hypomagnesemia; E88.09 Other disorders of plasma-protein metabolism, not elsewhere classified; E79.0 Hyperuricemia without signs of inflammatory arthritis and tophaceous disease; Z79.4 Long term (current) use of insulin; W19.XXXA Unspecified fall, initial encounter; J44.9 Chronic obstructive pulmonary disease, unspecified; F41.8 Other specified anxiety disorders; R25.1 Tremor, unspecified; N40.1 Benign prostatic hyperplasia with lower urinary tract symptoms; N39.498 Other specified urinary incontinence; E78.5 Hyperlipidemia, unspecified; M15.0 Primary generalized (osteo)arthritis; Z79.82 Long term (current) use of aspirin; Z88.6 Allergy status to analgesic agent; Z88.8 Allergy status to other drugs, medicaments and biological substances
CPT/HCPCS: 36415; 71010; 80053; 81001; 82550; 82553; 83605; 83735; 83880; 84443; 84484; 84550; 85025; 85379; 85610; 85730; 87040 ×2; 87086; 93005; 94640; 96365; 99285; J0696; J7050; 51798; 80061; 82962; 83036; 86140; 94664; 99222; 99232; 99238; A9270-GY; J1815-GY; J1940; J7030

== ENCOUNTER 2016-10-26 13:24 | Emergency (ER) | payer OTHER, SELFPAY ==
[2016-10-26] MEDS ORDERED: Metoprolol Tartrate 5 MG/5 ML SDV IVPUSH ONE (15:25)
[2016-10-26] MEDS ORDERED: cefTRIAXone 1 GM in Sodium Chloride 0.9% 100 ML IV ONE (16:04)
[2016-10-26 16:15] LABS: CHLORIDE,CL 105 mmol/L (98-107); SODIUM,NA 143 mmol/L (136-145)
[2016-10-26] MEDS ORDERED: Sodium Chloride 0.9% 1,000 ML IV SCH (16:15)
[2016-10-26] MEDS ORDERED: Acetaminophen 325 MG Tab PO ONE (16:17)
--- NOTE | 2016-10-26 16:21 | EDM.PDOC ---
ED HPI GENERAL MEDICAL PROBLEM - General Chief Complaint: Fever Stated Complaint: falls,fever Time Seen by Provider: 10/26/16 13:34 Source of Information: Reports: Other ([facility] staff) History Limitations: Reports: Altered Mental Status - History of Present Illness INITIAL COMMENTS - FREE TEXT/NARRATIVE: Patient sent here from [facility] for evaluation after it was noted that he appeared weaker than usual. Had fall this morning. Pulse higher than usual. Patient has some confusion and is unreliable for history. Also is schizophrenic. He denied any problems upon arrival and said he wanted to return to the [facility] and "read books ". O2 sats usual [facility] around 93% [facility], respiratory rate 20-22. Noted to have low grade fever today. No other specific complaints/changes per [facility] staff. - Related Data Allergies Allergy/AdvReac Type Severity Reaction Status Date / Time dextromethorphan Allergy Cannot Verified 10/26/16 15:07 [From NyQuil] Remember doxylamine [From NyQuil] Allergy Cannot Verified 10/26/16 15:07 Remember loxapine Allergy Cannot Verified 10/26/16 15:07 Remember perphenazine Allergy Cannot Verified 10/26/16 15:07 Remember pseudoephedrine [From NyQuil] Allergy Cannot Verified 10/26/16 15:07 Remember thiothixene Allergy Cannot Verified 10/26/16 15:07 Remember Home Meds: Home Meds Acetaminophen 650 mg PO Q4HR PRN 10/26/16 [History] Albuterol [Proventil Neb Soln] 3 ml INH Q4HR PRN 10/26/16 [History] Aspirin [Halfprin] 81 mg PO DAILY@59910/26/16 [History] Atenolol [Tenormin] 25 mg PO DAILY@59910/26/16 [History] Benztropine [Cogentin] 1 mg PO BID 10/26/16 [History] Calcium Carbonate/Vitamin D3 [Calcium 250+D] 1 tab PO BEDTIME 10/26/16 [History] ClonazePAM [KlonoPIN] 0.5 mg PO TID@,,10/26/16 [History] Divalproex Sodium [Depakote ER] 500 mg PO DAILY@199910/26/16 [History] Docusate Sodium [Colace] 200 mg PO BID@10/26/16 [History] Eucalyptus/Menthol [Cough Drops] 1 ladan PO ASDIRECTED PRN 10/26/16 [History] Fish Oil/Hickman-3 Fatty Acids [Fish Oil 1,000 MG] 1,000 mg PO BID@599,10/26 [History] Insulin Aspart [Novolog Flexpen] 15 units SUBCUT TID@,,10/26/16 [History] Insulin Glarg,Human.Rec.Analog [LantUS Solostar] 80 units SUBCUT DAILY@699 [History] Levothyroxine [Synthroid] 50 mcg PO DAILY@59910/26/16 [History] Lisinopril 10 mg PO BID@,10/26/16 [History] Methyl Salicylate/Menthol [Thera-Gesic Analgesic] 1 applic TOP QID 10/26/16 [ History] Multivitamins [Tab-A-Sara] 1 tab PO BEDTIME 10/26/16 [History] Potassium Chloride 10 meq PO DAILY@,10/26/16 [History] QUEtiapine [SEROquel] 300 mg PO TID@06,,10/26/16 [History] Sennosides/Docusate Sodium [Senna S Tablet] 1 tab PO BID@,10/26/16 [History ] Simvastatin [Zocor] 10 mg PO BEDTIME 10/26/16 [History] Tamsulosin HCl [Flomax] 0.4 mg PO BEDTIME 10/26/16 [History] Vitamin E 400 unit PO DAILY@199910/26/16 [History] hydrOXYzine HCl [Atarax] 50 mg PO BID PRN 10/26/16 [History] Past Medical History HEENT History: Reports: Allergic Rhinitis, Cataract, Glaucoma, Hard of Hearing Cardiovascular History: Reports: High Cholesterol, Hypertension Respiratory History: Reports: COPD Gastrointestinal History: Reports: Chronic Constipation Genitourinary History: Reports: BPH, Urinary Incontinence Musculoskeletal History: Reports: Arthritis, Osteoarthritis Neurological History: Reports: Other (See Below) (chronic resting tremor, generalized weakness) Psychiatric History: Reports: Anxiety, Depression, Schizophrenia Endocrine/Metabolic History: Reports: Diabetes, Type II, Hypothyroidism, IDDM, Obesity/BMI 30+ Social & Family History - Family History Family Medical History: Unobtainable ED ROS GENERAL - Review of Systems Review Of Systems: ROS reveals no pertinent complaints other than HPI. (Patient denies any changes during ROS.) ED EXAM, GENERAL - Physical Exam Exam: See Below Exam Limited By: No Limitations General Appearance: Alert, No Apparent Distress, Obese Eye Exam: Bilateral Eye: EOMI, PERRL Ears: Normal External Exam, Normal Canal, Hearing Grossly Normal, Normal TMs Nose: Normal Inspection Throat/Mouth: Normal Lips, Normal Gums, Normal Oropharynx, Normal Voice, No Airway Compromise, Other (Patient has no teeth) Head: Atraumatic, Normocephalic Neck: Supple, Non-Tender, Full Range of Motion. No: Carotid Bruit, Lymphadenopathy (L), Lymphadenopathy (R) Respiratory/Chest: Chest Non-Tender, Accessory Muscle Use, Other (scattered rhonchi posteriorly bilaterally). No: Wheezing, Stridor, Retractions, Prolonged Expiration Cardiovascular: No Edema, No Murmur, Tachycardia Peripheral Pulses: 2+: Radial (L), Radial (R) GI/Abdominal: Normal Bowel Sounds, Soft, Non-Tender (Male) Exam: Deferred Rectal (Males) Exam: Deferred Back Exam: Normal Inspection. No: CVA Tenderness (L), CVA Tenderness (R), Muscle Spasm, Paraspinal Tenderness, Vertebral Tenderness Extremities: Non-Tender, Normal Capillary Refill Neurological: Alert, No Motor/Sensory Deficits, Inattentive, Other (some tangental speech noted) Psychiatric: Anxious Skin Exam: Warm, Dry, Other (healing abrasion left knee area) Course - Vital Signs Last Recorded V/S: Last Vital Signs Temp 38.9 C H 10/26/16 16:59 Pulse 111 H 10/26/16 16:59 Resp 33 H 10/26/16 16:59 BP 174/69 H 10/26/16 16:59 Pulse Ox 96 10/26/16 16:59 - Orders/Labs/Meds Orders: Active Orders 24 hr Category Date Time Status RT Aerosol Therapy [RC] ASDIRECTED Care 10/26/16 16:55 Active Chest 2V [CR] Stat Exams 10/26/16 13:35 Taken CULTURE BLOOD [BC] Stat Lab 10/26/16 15:45 Received CULTURE BLOOD [BC] Stat Lab 10/26/16 16:20 Received CULTURE URINE [RM] Routine Lab 10/26/16 16:00 Uncollected Sodium Chloride 0.9% [Normal Saline] 1,000 ml Med 10/26/16 16:15 Active IV ASDIRECTED Blood Culture x2 Reflex Set [OM.PC] Stat Oth 10/26/16 14:40 Ordered Medication Orders Sodium Chloride (Normal Saline) 1,000 mls @ 125 mls/hr IV ASDIRECTED LISANDRA Last Admin: 10/26/16 17:44 Dose: 125 mls/hr Labs: Laboratory Tests 10/26/16 10/26/16 10/26/16 Range/Units 14:45 15:45 15:45 WBC 8.1 (4.0-10.2) K/uL RBC 4.66 (4.33-5.41) M/uL Hgb 14.4 (13.1-16.8) g/dL Hct 41.8 (39.0-49.0) % MCV 89.7 (84.0-98.0) fL MCH 30.9 (28.2-33.3) pg MCHC 34.4 (31.7-36.0) g/dL RDW 14.9 H (11.2-14.1) % Plt Count 104 L (150-350) K/uL Neut % (Auto) 67.6 (45.0-80.0) % Lymph % (Auto) 22.0 (10.0-50.0) % [place] % (Auto) 10.1 (2.0-14.0) % Eos % (Auto) 0.1 (0.0-5.0) % Baso % (Auto) 0.2 (0.0-2.0) % Neut # (Auto) 5.45 (1.40-7.00) K/uL Lymph # (Auto) 1.78 (0.50-3.50) K/uL [place] # (Auto) 0.82 (0.00-1.00) K/uL Eos # (Auto) 0.01 (0.00-0.50) K/uL Baso # (Auto) 0.02 (0.00-0.20) K/uL D-Dimer, Quantitative (0-400) ng/mL Sodium 143 (136-145) mmol/L Potassium 3.7 (3.5-5.1) mmol/L Chloride 105 (98-107) mmol/L Carbon Dioxide 28.4 (21.0-32.0) mmol/L BUN 14 (7-18) mg/dL Creatinine 1.11 (0.51-1.17) mg/dL Est Cr Clr Drug Dosing TNP Estimated GFR (MDRD) > 60 mL/min Glucose 99 (74-106) mg/dL Lactic Acid (0.4-2.0) mmol/L Calcium 8.7 (8.5-10.1) mg/dL Total Bilirubin 0.6 (0.2-1.0) mg/dL AST 20 (15-37) U/L ALT 25 (12-78) U/L Alkaline Phosphatase 63 (46-116) IU/L Troponin I (0.000-0.056) ng/mL Oee-V-Guttspmvvql Pept 285 H (0-125) pg/mL Total Protein 7.4 (6.4-8.2) g/dL Albumin 3.5 (3.4-5.0) g/dL Specimen Type Urinvoid Urine Color [place] Urine Appearance Cloudy Urine pH 6.0 (5.0-9.0) Ur Specific [place] 1.025 (1.005-1.030) Urine Protein 100 H (NEGATIVE) mg/dL Urine Glucose (UA) Negative (NEGATIVE) mg/dL Urine Ketones 15 H (NEGATIVE) mg/dL Urine Occult Blood Moderate H (NEGATIVE) Urine Nitrite Positive H (NEGATIVE) Urine Bilirubin Small H (NEGATIVE) Urine Urobilinogen 1.0 (0.2-1.0) E.U./dL Ur Leukocyte Esterase Negative (NEGATIVE) Urine RBC 20-30 H /HPF Urine WBC 75-100 H /HPF Ur Epithelial Cells Few /LPF Amorphous Sediment Few (0/HPF) /HPF Urine Bacteria Many H (NONE TO FEW) /HPF 10/26/16 10/26/16 10/26/16 Range/Units 15:45 15:45 15:45 WBC (4.0-10.2) K/uL RBC (4.33-5.41) M/uL Hgb (13.1-16.8) g/dL Hct (39.0-49.0) % MCV (84.0-98.0) fL MCH (28.2-33.3) pg MCHC (31.7-36.0) g/dL RDW (11.2-14.1) % Plt Count (150-350) K/uL Neut % (Auto) (45.0-80.0) % Lymph % (Auto) (10.0-50.0) % [place] % (Auto) (2.0-14.0) % Eos % (Auto) (0.0-5.0) % Baso % (Auto) (0.0-2.0) % Neut # (Auto) (1.40-7.00) K/uL Lymph # (Auto) (0.50-3.50) K/uL [place] # (Auto) (0.00-1.00) K/uL Eos # (Auto) (0.00-0.50) K/uL Baso # (Auto) (0.00-0.20) K/uL D-Dimer, Quantitative 252 (0-400) ng/mL Sodium (136-145) mmol/L Potassium (3.5-5.1) mmol/L Chloride (98-107) mmol/L Carbon Dioxide (21.0-32.0) mmol/L BUN (7-18) mg/dL Creatinine (0.51-1.17) mg/dL Est Cr Clr Drug Dosing Estimated GFR (MDRD) mL/min Glucose (74-106) mg/dL Lactic Acid 1.6 (0.4-2.0) mmol/L Calcium (8.5-10.1) mg/dL Total Bilirubin (0.2-1.0) mg/dL AST (15-37) U/L ALT (12-78) U/L Alkaline Phosphatase (46-116) IU/L Troponin I 0.002 (0.000-0.056) ng/mL Lfp-K-Veorwvufdur Pept (0-125) pg/mL Total Protein (6.4-8.2) g/dL Albumin (3.4-5.0) g/dL Specimen Type Urine Color Urine Appearance Urine pH (5.0-9.0) Ur Specific [place] (1.005-1.030) Urine Protein (NEGATIVE) mg/dL Urine Glucose (UA) (NEGATIVE) mg/dL Urine Ketones (NEGATIVE) mg/dL Urine Occult Blood (NEGATIVE) Urine Nitrite (NEGATIVE) Urine Bilirubin (NEGATIVE) Urine Urobilinogen (0.2-1.0) E.U./dL Ur Leukocyte Esterase (NEGATIVE) Urine RBC /HPF Urine WBC /HPF Ur Epithelial Cells /LPF Amorphous Sediment (0/HPF) /HPF Urine Bacteria (NONE TO FEW) /HPF Meds: Medications Generic Name Dose Route Start Last Admin Trade Name Freq PRN Reason Stop Dose Admin Sodium Chloride 1,000 mls @ 125 mls/hr 10/26/16 16:15 10/26/16 17:44 Normal Saline IV 125 mls/hr ASDIRECTED LISANDRA Administration Discontinued Medications Generic Name Dose Route Start Last Admin Trade Name Freq PRN Reason Stop Dose Admin Acetaminophen 650 mg 10/26/16 16:17 10/26/16 16:29 Tylenol PO 10/26/16 16:18 650 mg NOW ONE Administration Albuterol/Ipratropium 3 ml 10/26/16 16:55 Duoneb 3.0-0.5 Mg/3 Ml NEB 10/26/16 16:56 ONETIME ONE Ceftriaxone Sodium 1 gm/ 100 mls @ 200 mls/hr 10/26/16 16:04 10/26/16 16:44 Sodium Chloride IV 10/26/16 16:33 200 mls/hr ONETIME ONE Administration Lorazepam 1 mg 10/26/16 16:32 10/26/16 16:38 Ativan IVPUSH 10/26/16 16:33 1 mg ONETIME ONE Administration Metoprolol Tartrate 2.5 mg 10/26/16 15:25 10/26/16 16:21 Lopressor IVPUSH 10/26/16 15:26 2.5 mg ONETIME ONE Administration - Radiology Interpretation Free Text/Narrative:: Chest film limited due to chest wall motion. No obvious new focal infiltrates noted. - Re-Assessments/Exams Free Text/Narrative Re-Assessment/Exam: 10/26/16 16:51 Patient noted to have UTI. BP increased, Metoprolol ordered. IV NS and Rocephin ordered. Patient became more agitated, noted to be trying to sit up, O2 sats decreased, RR and HR elevated. Improved once patient calmed down and Ativan given. WBC normal. Overall labwork otherwise unremarkable. [facility] of [facility] and continued observation of mental status. accepted patient as transfer to [facility]. Departure - Departure Time of Disposition: 18:44 Disposition: DC/[facility] to [facility] Condition: Good Clinical Impression: UTI (urinary tract infection) Qualifiers: Urinary tract infection type: site unspecified Hematuria presence: without hematuria Qualified Code(s): N39.0 - Urinary tract infection, site not specified Mental status alteration Qualifiers: Altered mental status type: unspecified Qualified Code(s): R41.82 - Altered mental status, unspecified - Discharge Information Forms: ED Department Discharge - My Orders Last 24 Hours: My Active Orders 10/26/16 13:35 Chest 2V [CR] Stat 10/26/16 14:40 Blood Culture x2 Reflex Set [OM.PC] Stat 10/26/16 15:45 CULTURE BLOOD [BC] Stat 10/26/16 16:00 CULTURE URINE [RM] Routine 10/26/16 16:15 Sodium Chloride 0.9% [Normal Saline] 1,000 ml IV ASDIRECTED 10/26/16 16:20 CULTURE BLOOD [BC] Stat 10/26/16 16:55 RT Aerosol Therapy [RC] ASDIRECTED - Assessment/Plan Last 24 Hours: My Active Orders 10/26/16 13:35 Chest 2V [CR] Stat 10/26/16 14:40 Blood Culture x2 Reflex Set [OM.PC] Stat 10/26/16 15:45 CULTURE BLOOD [BC] Stat 10/26/16 16:00 CULTURE URINE [RM] Routine 10/26/16 16:15 Sodium Chloride 0.9% [Normal Saline] 1,000 ml IV ASDIRECTED 10/26/16 16:20 CULTURE BLOOD [BC] Stat 10/26/16 16:55 RT Aerosol Therapy [RC] ASDIRECTED
[2016-10-26] MEDS ORDERED: LORazepam 2 MG/ML MDV IVPUSH ONE (16:32)
[2016-10-26] MEDS ORDERED: Albuterol/Ipratropium 3.0-0.5 MG/3 ML Neb Soln NEB ONE (16:55)
[2016-10-26 17:02] VITALS: BP 174/69
== END 2016-10-26 18:15 ==
LOC: LL.ED 13:24 → MERGE 13:24 → LL.ED 18:15
DX: N39.0 Urinary tract infection, site not specified (principal); R41.82 Altered mental status, unspecified; E78.00 Pure hypercholesterolemia, unspecified; I10 Essential (primary) hypertension; E03.9 Hypothyroidism, unspecified; E66.9 Obesity, unspecified; J44.9 Chronic obstructive pulmonary disease, unspecified; F41.9 Anxiety disorder, unspecified; F32.9 Major depressive disorder, single episode, unspecified; E11.9 Type 2 diabetes mellitus without complications; Z88.8 Allergy status to other drugs, medicaments and biological substances; Z79.82 Long term (current) use of aspirin; Z79.4 Long term (current) use of insulin; Z79.899 Other long term (current) drug therapy
CPT/HCPCS: 36415; 71020; 80053; 81001; 83605; 83880; 84484; 85025; 85379; 87040; 87086; 87088; 87186; 96361; 96365; 96375; 99285; A9270; J0696; J2060; J7030; J7050; 99284; J3490

== ENCOUNTER 2017-10-23 21:59 | Observation (INO) | payer MEDICARE, MEDICAID ==
--- NOTE | 2017-10-23 23:36 | EDM.PDOC ---
ED HPI GENERAL MEDICAL PROBLEM - General Chief Complaint: General Stated Complaint: fever Time Seen by Provider: 10/23/17 22:25 Source of Information: Reports: Other [facility]) History Limitations: Reports: Altered Mental Status (Patient has chronic cognitive deficits/schizophrenia, unable to give history or accurate ROS. ) - History of Present Illness INITIAL COMMENTS - FREE TEXT/NARRATIVE: Patient sent here for evaluation after having temp at [facility] of 104. Nursing staff at [facility] did not give any additional information. Review of patient's chart revealed that he had a temp also noted yesterday and labwork was performed. Was found to have UTI. Started on Levaquin. Had dose yesterday and today. Was also given single dose IM Rocephin around 8pm tonight shortly before transfer. EMS crew noted temp of 103. Approximately a half hour after arrival patient was afebrile. Unable to perform accurate ROS with patient due to chronic cognitive issues. He did tell us that he feels fine, has no complaints, and is pain-free. Patient has received evening meds, including Seroquel, and is wanting to sleep. Rousable however when spoken to, examined. CBC/Chem also performed yesterday. Normal WBC. Good renal function. Has elevated blood sugars/is diabetic. No reported runny nose/cough/SOB/decreased O2 sats/GI changes. - Related Data Allergies Allergy/AdvReac Type Severity Reaction Status Date / Time acetaminophen [From NyQuil] Allergy Cannot Verified 10/23/17 22:22 Remember dextromethorphan Allergy Cannot Verified 10/23/17 22:22 [From NyQuil] Remember doxylamine [From NyQuil] Allergy Cannot Verified 10/23/17 22:22 Remember loxapine Allergy Cannot Verified 10/23/17 22:22 Remember perphenazine Allergy Cannot Verified 10/23/17 22:22 Remember pseudoephedrine [From NyQuil] Allergy Cannot Verified 10/23/17 22:22 Remember thiothixene Allergy Cannot Verified 10/23/17 22:22 Remember Home Meds: Home Meds Benztropine [Cogentin] 1 mg PO 09/25/16 [History] Calcium Carbonate/Vitamin D3 [Os-[place]ewayne 500+D] 1 each PO BEDTIME 09/25/16 [History] Insulin Glarg,Human.Rec.Analog [LantUS] 80 unit SUBCUT DAILY@09/25/16 [ History] Levothyroxine [Synthroid] 50 mcg PO DAILY@09/25/16 [History] Methyl Salicylate/Menthol [Thera-Gesic Analgesic] 1 applic TP QID PRN 09/25/16 [ History] Multivitamin [Daily Sara] 1 each PO BEDTIME 09/25/16 [History] Potassium Chloride [Klor-Con 10] 10 meq PO 09/25/16 [History] Acetaminophen 650 mg PO Q4HR PRN 10/26/16 [History] Aspirin [Halfprin] 81 mg PO DAILY@59910/26/16 [History] Atenolol [Tenormin] 25 mg PO DAILY@59910/26/16 [History] ClonazePAM [KlonoPIN] 0.5 mg PO TID@,,10/26/16 [History] Divalproex Sodium [Depakote ER] 500 mg PO DAILY@199910/26/16 [History] Fish Oil/[place]inkley-3 Fatty Acids [Fish Oil 1,000 MG] 1,000 mg PO BID@599,10/26 [History] Insulin Aspart [Novolog Flexpen] 15 units SUBCUT TID@,,10/26/16 [History] Lisinopril 10 mg PO BID@10/26/16 [History] QUEtiapine [SEROquel] 300 mg PO TID@06,11,16 10/26/16 [History] Sennosides/Docusate Sodium [Senna S Tablet] 1 tab PO BID@10/26/16 [History ] Simvastatin [Zocor] 10 mg PO BEDTIME 10/26/16 [History] Tamsulosin HCl [Flomax] 0.4 mg PO BEDTIME 10/26/16 [History] Vitamin E 400 unit PO DAILY@199910/26/16 [History] hydrOXYzine HCl [Atarax] 50 mg PO BID PRN 10/26/16 [History] cefTRIAXone [Rocephin] 1 gm IM ONETIME 10/23/17 [History] levoFLOXacin [Levaquin] 500 mg PO DAILY 10/23/17 [History] Past Medical History HEENT History: Reports: Allergic Rhinitis, Cataract, Glaucoma, Hard of Hearing, Other (See Below) Other HEENT History: Preglaucoma, bilateral presbycusis, eyelid dermatochalasis Cardiovascular History: Reports: High Cholesterol, Hypertension Respiratory History: Reports: COPD, Other (See Below) Other Respiratory History: COPD by chest x-ray Gastrointestinal History: Reports: Chronic Constipation Genitourinary History: Reports: BPH, Urinary Incontinence Musculoskeletal History: Reports: Arthritis, Osteoarthritis Neurological History: Reports: Other (See Below) Other Neuro History: Chronic resting tremor tremor, generalized weakness Psychiatric History: Reports: Anxiety, Depression, Other (See Below), Schizophrenia Endocrine/Metabolic History: Reports: Diabetes, Type II, Hypothyroidism, IDDM, Obesity/BMI 30+ Social & Family History - Family History Family Medical History: Unobtainable - Living Situation & Occupation Living situation: Reports: Extended Care Facility ([facility]) ED ROS GENERAL - Review of Systems Review Of Systems: Unable To Obtain ED EXAM, GENERAL - Physical Exam Exam: See Below Exam Limited By: Other (Patient keeps falling back asleep, snoring. Wants to be left alone. Unable to get him to roll over or listen well to requests. Told examiner that it was time to sleep.) General Appearance: WD/WN, No Apparent Distress Eye Exam: Bilateral Eye: EOMI, PERRL Ears: Normal External Exam Nose: No: Nasal Deformity, Nasal Swelling, Nasal Drainage Throat/Mouth: Normal Lips, Normal Voice, No Airway Compromise Head: Atraumatic, Normocephalic Neck: Normal Inspection, Supple, Non-Tender, Full Range of Motion. No: Lymphadenopathy (L), Lymphadenopathy (R) Respiratory/Chest: No Respiratory Distress, Lungs Clear, Normal Breath Sounds, No Accessory Muscle Use, Chest Non-Tender Cardiovascular: No Edema, No Murmur, Tachycardia Peripheral Pulses: 2+: Radial (L), Radial (R), Dorsalis Pedis (L), Dorsalis Pedis (R) GI/Abdominal: Normal Bowel Sounds, Soft, Non-Tender, No Distention (Male) Exam: Deferred Rectal (Males) Exam: Deferred Extremities: Non-Tender, Normal Capillary Refill. No: Increased Warmth, Mottled , Pallor, Redness Neurological: Alert, Other (Patient appears to be his usual self. Grossly symmetric tone and strength in limbs) Psychiatric: Normal Affect, Normal Mood Skin Exam: Warm, Dry, Intact, Normal Color Course - Orders/Labs/Meds Orders: Active Orders 24 hr Category Date Time Status Chest 1V Frontal [CR] Stat Exams 10/23/17 22:30 Ordered CULTURE BLOOD [BC] Stat Lab 10/23/17 22:18 Ordered CULTURE BLOOD [BC] Stat Lab 10/23/17 22:18 Ordered LACTIC ACID [CHEM] Stat Lab 10/23/17 22:30 Ordered Blood Culture x2 Reflex Set [OM.PC] Stat Oth 10/23/17 22:18 Ordered Labs: Laboratory Tests 10/23/17 Range/Units 22:28 WBC 5.2 (4.0-10.2) K/uL RBC 4.29 L (4.33-5.41) M/uL Hgb 12.9 L (13.1-16.8) g/dL Hct 38.6 L (39.0-49.0) % MCV 90.0 (84.0-98.0) fL MCH 30.1 (28.2-33.3) pg MCHC 33.4 (31.7-36.0) g/dL RDW 14.6 H (11.2-14.1) % Plt Count 101 L (150-350) K/uL Neut % (Auto) 70.9 (45.0-80.0) % Lymph % (Auto) 17.4 (10.0-50.0) % [place] % (Auto) 11.3 (2.0-14.0) % Eos % (Auto) 0.0 (0.0-5.0) % Baso % (Auto) 0.4 (0.0-2.0) % Neut # (Auto) 3.72 (1.40-7.00) K/uL Lymph # (Auto) 0.91 (0.50-3.50) K/uL [place] # (Auto) 0.59 (0.00-1.00) K/uL Eos # (Auto) 0.00 (0.00-0.50) K/uL Baso # (Auto) 0.02 (0.00-0.20) K/uL - Radiology Interpretation Free Text/Narrative:: Chest xray very similar in appearance to one taken last year as well as one from two years ago. Poor inspiration/low volume. No specific definite new pneumonia. - Re-Assessments/Exams Free Text/Narrative Re-Assessment/Exam: 10/23/17 23:50 WBC remained normal. Glucose elevated. Urine culture and blood culture pending. Suspect that fever is due to recently diagnosed UTI. Again, patient is currently afebrile. Mild tachycardia noted. He did receive 500ml fluid bolus while en route to ER. Normal lactic acid. Patient's usual sats on room air are 92-93%. He did get to 95% on 2L NC in ER. Respiratory rate mildly elevated in ER, however patient denied feeling SOB. He does usually have a respiratory rate in the low 20s. Patient admitted to observation. Will continue antibiotics and monitor for changes. If he is doing well tomorrow will consider transfer back to [facility]. He does not meet criteria for acute inpatient admission at this time. Anticipate 1- 2 days of observation along with continued treatment for UTI. Call placed to [facility], KALYN clifton was . Given that patient should likely need a short observation admission, he did not wish to have patient transferred to [facility] for further treatment and will allow patient to stay here. Departure - Departure Time of Disposition: 23:56 Disposition: Refer to Observation Condition: Good Clinical Impression: UTI (urinary tract infection) Qualifiers: Urinary tract infection type: site unspecified Hematuria presence: without hematuria Qualified Code(s): N39.0 - Urinary tract infection, site not specified Fever Qualifiers: Fever type: unspecified Qualified Code(s): R50.9 - Fever, unspecified - Discharge Information *PRESCRIPTION DRUG MONITORING PROGRAM REVIEWED*: Not Applicable *COPY OF PRESCRIPTION DRUG MONITORING REPORT IN PATIENT JAMES: Not Applicable - Problem List & Annotations (1) UTI (urinary tract infection) SNOMED Code(s): 03666364 Status: Acute Priority: High Current Visit: Yes Onset Date: ~10/21/17 Annotation/Comment:: Continue Levaquin. Observe for changes. Qualifiers: Urinary tract infection type: site unspecified Hematuria presence: without hematuria Qualified Code(s): N39.0 - Urinary tract infection, site not specified (2) Fever SNOMED Code(s): 068132873 Code(s): R50.9 - FEVER, UNSPECIFIED Status: Acute Priority: High Current Visit: Yes Onset Date: ~10/23/17 Annotation/Comment:: Suspect due to UTI. Observe for changes. Qualifiers: Fever type: unspecified Qualified Code(s): R50.9 - Fever, unspecified - Problem List Review Problem List Initiated/Reviewed/Updated: Yes - My Orders Last 24 Hours: My Active Orders 10/23/17 22:18 CULTURE BLOOD [BC] Stat CULTURE BLOOD [BC] Stat Blood Culture x2 Reflex Set [OM.PC] Stat 10/23/17 22:30 Chest 1V Frontal [CR] Stat LACTIC ACID [CHEM] Stat - Assessment/Plan Admission H&P: Please use this note as an admission H&P Last 24 Hours: My Active Orders 10/23/17 22:18 CULTURE BLOOD [BC] Stat CULTURE BLOOD [BC] Stat Blood Culture x2 Reflex Set [OM.PC] Stat 10/23/17 22:30 Chest 1V Frontal [CR] Stat LACTIC ACID [CHEM] Stat Assessment:: as above Plan: as above. Anticipate 1-2 days of observation with subsequent transition back to oral antibiotics and return to [facility].
[2017-10-24] MEDS ORDERED: Acetaminophen 325 MG Tab PO PRN (00:05)
[2017-10-24] MEDS ORDERED: Sodium Chloride 0.9% 1,000 ML IV ONE (00:07)
[2017-10-24] MEDS ORDERED: LORazepam 2 MG/ML SDV IVPUSH STA (01:15)
[2017-10-24] MEDS ORDERED: LORazepam 2 MG/ML SDV IVPUSH PRN (01:16)
[2017-10-24] MEDS ORDERED: Haloperidol Lactate 5 MG/ML SDV IVPUSH ONE ×2 (03:02→03:44)
[2017-10-24] MEDS ORDERED: Haloperidol Lactate 5 MG/ML SDV ONE (03:11)
[2017-10-24] MEDS: QUEtiapine 100 MG Tab PO SCH ×2 (05:58→12:18)
[2017-10-24] MEDS ORDERED: Potassium Chloride 10 MEQ Tab.ER PO SCH (06:00)
[2017-10-24] MEDS ORDERED: Fish Oil/Omega-3 Fatty Acids 1 Gm Cap PO SCH (06:00)
[2017-10-24] MEDS ORDERED: Levothyroxine 50 MCG Tab PO SCH (06:00)
[2017-10-24] MEDS ORDERED: Lisinopril 10 MG Tab PO SCH (06:00)
[2017-10-24] MEDS ORDERED: Aspirin 81 MG Tab.EC PO SCH (06:00)
[2017-10-24] MEDS ORDERED: Atenolol 25 MG Tab PO SCH (06:00)
[2017-10-24] MEDS ORDERED: Insulin Detemir 100 Units/ML 3 ML Pen SUBCUT SCH (07:00)
[2017-10-24] MEDS ORDERED: ClonazePAM 0.5 MG Tab PO SCH (08:00)
[2017-10-24] MEDS ORDERED: Levofloxacin/Dextrose 5%-Water 500 MG in Premix Bag 1 BAG IV SCH (08:00)
[2017-10-24] MEDS ORDERED: Benztropine 1 MG Tab PO SCH (08:00)
[2017-10-24] MEDS: Insulin Aspart 100 Units/ML 3 ML Pen SUBCUT SCH ×2 (09:15→12:19)
[2017-10-24 12:53] VITALS: BP 102/49
--- NOTE | 2017-10-24 13:52 | PCM.DCSUM1 ---
Discharge Summary - Hospital Course Brief History: Patient sent to ER due to fever of 104. Diagnosed recently with UTI. Recieved IM Rocephin just prior to transfer to ER in addition to two PO doses of Levaquin over two days. Diagnosis: Stroke: No - Discharge Data Discharge Date: 10/24/17 Discharge Disposition: DC/Tfer to [facility] 03 Condition: Good - Discharge Diagnosis/Problem(s) (1) UTI (urinary tract infection) SNOMED Code(s): 72236721 Status: Acute Priority: High Current Visit: Yes Onset Date: ~10/21/17 Problem Details: UC still pending. Day 3 of Levaquin. Also received Rocephin last evening. No return of high fevers since admission. Eating/drinking well. Will discharge back to [facility] where patient will continue oral Levaquin therapy for UTI. Qualifiers: Urinary tract infection type: site unspecified Hematuria presence: without hematuria Qualified Code(s): N39.0 - Urinary tract infection, site not specified (2) Fever SNOMED Code(s): 931658705 ICD Code: R50.9 - FEVER, UNSPECIFIED Status: Acute Priority: High Current Visit: Yes Onset Date: ~10/23/17 Problem Details: Suspect due to UTI. Qualifiers: Fever type: unspecified Qualified Code(s): R50.9 - Fever, unspecified (3) Confusion SNOMED Code(s): 288840111 ICD Code: R41.0 - DISORIENTATION, UNSPECIFIED Status: Acute Priority: High Current Visit: No Onset Date: Unknown Problem Details: Patient has history of schizophrenia/confusion. Increased confusion noted after admission last evening. 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 Agitated. Improved after Haldol. Today is pleasant with staff. Requesting to return to [facility]. - Patient Summary/Data Complications: Patient pulled out IV as well as Ross overnight. Hospital Course: No further significant fever observed after admission. Chest xray reviewed by Radiology, no changes noted suggesting acute infiltrate/pneumonia. Normal WBC. Vital signs stable. [facility] and continue to monitor for changes. UC results pending. In past, patient has grown out Klebsiella species when having UTI, and these have been susceptible to Cipro/Levaquin/Rocephin. Patient to follow up with [facility] on [place] rounds. He does have continued baseline elevated respiratory rate and O2 sats in low 90s. This was observed during previous evaluations in our facility and are considered normal for patient when [facility] has been contacted about this in the past. Has history of mild CHF/ COPD when problem list reviewed. Patient may benefit from routine neb treatments. - Patient Instructions Diet: Usual Diet as Tolerated Activity: As Tolerated Showering/Bathing: May Shower Notify Provider of: Fever Other/Special Instructions: Continue Levaquin course of therapy. Watch for changes. Follow up as needed if there are problems. - Discharge Plan *PRESCRIPTION DRUG MONITORING PROGRAM REVIEWED*: Not Applicable *COPY OF PRESCRIPTION DRUG MONITORING REPORT IN PATIENT JAMES: Not Applicable Home Medications: Home Meds Benztropine [Cogentin] 1 mg PO ,09/25/16 [History] Calcium Carbonate/Vitamin D3 [Os-Dewayne 500+D] 1 each PO BEDTIME 09/25/16 [History] Insulin Glarg,Human.Rec.Analog [Lantus] 42 unit SUBCUT DAILY@09/25/16 [ History] Levothyroxine [Synthroid] 50 mcg PO DAILY@09/25/16 [History] Methyl Salicylate/Menthol [Thera-Gesic Analgesic] 1 applic TP QID PRN 09/25/16 [ History] Multivitamin [Daily Sara] 1 each PO BEDTIME 09/25/16 [History] Potassium Chloride [Klor-Con 10] 10 meq PO ,09/25/16 [History] Acetaminophen 650 mg PO Q4HR PRN 10/26/16 [History] Aspirin [Halfprin] 81 mg PO DAILY@59910/26/16 [History] Atenolol [Tenormin] 25 mg PO DAILY@59910/26/16 [History] ClonazePAM [KlonoPIN] 0.5 mg PO TID@,,10/26/16 [History] Divalproex Sodium [Depakote ER] 500 mg PO DAILY@199910/26/16 [History] Fish Oil/Filion-3 Fatty Acids [Fish Oil 1,000 MG] 1,000 mg PO BID@599,10/26 [History] Insulin Aspart [Novolog Flexpen] 18 units SUBCUT TID@,,10/26/16 [History] Lisinopril 10 mg PO BID@,10/26/16 [History] QUEtiapine [SEROquel] 300 mg PO TID@,,10/26/16 [History] Sennosides/Docusate Sodium [Senna-S Tablet] 1 tab PO BID@,10/26/16 [History ] Simvastatin [Zocor] 10 mg PO BEDTIME 10/26/16 [History] Tamsulosin HCl [Flomax] 0.4 mg PO BEDTIME 10/26/16 [History] Vitamin E 400 unit PO DAILY@199910/26/16 [History] hydrOXYzine HCl [Atarax] 50 mg PO BID PRN 10/26/16 [History] cefTRIAXone [Rocephin] 1 gm IM ONETIME 10/23/17 [History] levoFLOXacin [Levaquin] 500 mg PO DAILY 10/23/17 [History] Forms: ED Department Discharge Referrals: Sheets-Ramona Trammell MD [Primary Care Provider] - - Discharge Summary/Plan Comment DC Time >30 min.: No - General Info Date of Service: 10/24/17 Admission Dx/Problem (Free Text: Patient with history of recently diagnosed UTI sent to ER after having 104 fever at [facility]. Admitted observation. Subjective Update: Patient is awake, eating and drinking. Has no complaints when asked. Functional Status: Reports: Pain Controlled, Tolerating Diet, Urinating. Denies : New Symptoms - Review of Systems General: Reports: No Symptoms HEENT: Reports: No Symptoms Pulmonary: Reports: No Symptoms Cardiovascular: Reports: No Symptoms Gastrointestinal: Reports: No Symptoms Genitourinary: Reports: No Symptoms (Pulled out Ross catheter last night, small amount blood noted on underwear pad in urine afterwards) Musculoskeletal: Reports: No Symptoms Skin: Reports: No Symptoms Neurological: Reports: Confusion (exacerbation confusion last night observed by nursing staff) Psychiatric: Reports: Confusion, Agitation, Other (improved this morning. ) - Patient Data Vitals - Most Recent: Last Vital Signs Temp 37.5 C 10/24/17 12:00 Pulse 73 10/24/17 12:00 Resp 32 H 10/24/17 12:00 BP 102/49 L 10/24/17 12:00 Pulse Ox 97 10/24/17 12:00 Weight - Most Recent: 116.12 kg I&O - Last 24 hours: Intake & Output 10/23/17 10/24/17 10/24/17 22:59 06:59 14:59 Intake Total 460 Balance 460 Lab Results - Last 24 hrs: Laboratory Results - last 24 hr 10/23/17 10/23/17 10/23/17 Range/Units 22:28 22:28 22:28 WBC 5.2 (4.0-10.2) K/uL RBC 4.29 L (4.33-5.41) M/uL Hgb 12.9 L (13.1-16.8) g/dL Hct 38.6 L (39.0-49.0) % MCV 90.0 (84.0-98.0) fL MCH 30.1 (28.2-33.3) pg MCHC 33.4 (31.7-36.0) g/dL RDW 14.6 H (11.2-14.1) % Plt Count 101 L (150-350) K/uL Neut % (Auto) 70.9 (45.0-80.0) % Lymph % (Auto) 17.4 (10.0-50.0) % Ector % (Auto) 11.3 (2.0-14.0) % Eos % (Auto) 0.0 (0.0-5.0) % Baso % (Auto) 0.4 (0.0-2.0) % Neut # (Auto) 3.72 (1.40-7.00) K/uL Lymph # (Auto) 0.91 (0.50-3.50) K/uL Ector # (Auto) 0.59 (0.00-1.00) K/uL Eos # (Auto) 0.00 (0.00-0.50) K/uL Baso # (Auto) 0.02 (0.00-0.20) K/uL POC Glucose (65-110) mg/dl Lactic Acid 0.9 (0.4-2.0) mmol/L NT-Pro-B Natriuret Pep 219 H (0-125) pg/mL 10/24/17 10/24/17 Range/Units 07:24 11:32 WBC (4.0-10.2) K/uL RBC (4.33-5.41) M/uL Hgb (13.1-16.8) g/dL Hct (39.0-49.0) % MCV (84.0-98.0) fL MCH (28.2-33.3) pg MCHC (31.7-36.0) g/dL RDW (11.2-14.1) % Plt Count (150-350) K/uL Neut % (Auto) (45.0-80.0) % Lymph % (Auto) (10.0-50.0) % Ector % (Auto) (2.0-14.0) % Eos % (Auto) (0.0-5.0) % Baso % (Auto) (0.0-2.0) % Neut # (Auto) (1.40-7.00) K/uL Lymph # (Auto) (0.50-3.50) K/uL Ector # (Auto) (0.00-1.00) K/uL Eos # (Auto) (0.00-0.50) K/uL Baso # (Auto) (0.00-0.20) K/uL POC Glucose 233 H 214 H (65-110) mg/dl Lactic Acid (0.4-2.0) mmol/L NT-Pro-B Natriuret Pep (0-125) pg/mL Med Orders - Current: Current Medications Acetaminophen (Tylenol) 650 mg PO Q4HR PRN PRN Reason: Pain/Fever Aspirin (Halfprin) 81 mg PO DAILY@599 [facility] Last Admin: 10/24/17 05:58 Dose: 81 mg Atenolol (Tenormin) 25 mg PO DAILY@0600 [facility] Last Admin: 10/24/17 06:04 Dose: 25 mg Benztropine Mesylate (Cogentin) 1 mg PO [facility] Last Admin: 10/24/17 09:15 Dose: 1 mg Clonazepam (Klonopin) 0.5 mg PO TID@, [facility] Last Admin: 10/24/17 09:15 Dose: 0.5 mg Divalproex Sodium (Depakote Er) 500 mg PO DAILY@1999 [facility] Fish Oil (Fish Oil) 1 gm PO BID@ [facility] Last Admin: 10/24/17 05:57 Dose: 1 gm Levofloxacin/Dextrose 500 mg/ (Premix) 100 mls @ 100 mls/hr IV Q24H [facility] Last Admin: 10/24/17 07:29 Dose: 100 mls/hr Insulin Aspart (Novolog) 0 unit SUBCUT TID@08,,17 [facility] Last Admin: 10/24/17 12:19 Dose: 18 units Insulin Detemir (Levemir) 0 unit SUBCUT DAILY@07 [facility] Last Admin: 10/24/17 07:26 Dose: 42 units Levothyroxine Sodium (Synthroid) 50 mcg PO DAILY@06 [facility] Last Admin: 10/24/17 05:58 Dose: 50 mcg Lisinopril (Prinivil) 10 mg PO BID@, [facility] Last Admin: 10/24/17 06:03 Dose: 10 mg Lorazepam (Ativan) 1 mg IVPUSH Q6H PRN PRN Reason: Anxiety Potassium Chloride (Klor-Con 10) 10 meq PO [facility] Last Admin: 10/24/17 06:02 Dose: 10 meq Quetiapine Fumarate (Seroquel) 300 mg PO TID@,,16 [facility] Last Admin: 10/24/17 12:18 Dose: 300 mg Senna/Docusate Sodium (Senna Plus) 1 tab PO BID@ [facility] Last Admin: 10/24/17 05:59 Dose: 1 tab Simvastatin (Zocor) 10 mg PO BEDTIME [facility] Tamsulosin HCl (Flomax) 0.4 mg PO BEDTIME [facility] Discontinued Medications Haloperidol Lactate (Haldol) 5 mg IVPUSH ONETIME ONE Stop: 10/24/17 03:03 Last Admin: 10/24/17 03:13 Dose: 5 mg Haloperidol Lactate (Haldol) Confirm Administered Dose 5 mg .ROUTE .STK-MED ONE Stop: 10/24/17 03:12 Last Admin: 10/24/17 03:49 Dose: Not Given Haloperidol Lactate (Haldol) 5 mg IVPUSH ONETIME ONE Stop: 10/24/17 03:45 Last Admin: 10/24/17 03:57 Dose: 5 mg Sodium Chloride (Normal Saline) 1,000 mls @ 150 mls/hr IV .BOLUS ONE Stop: 10/24/17 06:46 Last Admin: 10/24/17 00:48 Dose: 150 mls/hr Lorazepam (Ativan) 1 mg IVPUSH ONETIME STA Stop: 10/24/17 01:16 Last Admin: 10/24/17 01:24 Dose: 1 mg - Exam Quality Assessment: Reports: Supplemental Oxygen (2L) General: Reports: Alert, Other (appears to be at usual baseline level of interaction) HEENT: Reports: Pupils Equal, Pupils Reactive, EOMI, Mucous Membr. Moist/[place] Neck: Reports: Supple Lungs: Reports: Clear to Auscultation, Other (Patient usually has some degree of abdominal breathing present with rate in 20s. Does not appear to have increased effort of breathing at this time. ). Denies: Crackles, Rales, Rhonchi , Rub, Stridor, Wheezing Cardiovascular: Reports: Regular Rate, Regular Rhythm GI/Abdominal Exam: Normal Bowel Sounds, Soft, Non-Tender, No Distention (Male) Exam: Other (did have small amount of pink/bloody coloration in pull up. ) Back Exam: Denies: CVA Tenderness (L), CVA Tenderness (R) Extremities: Non-Tender, No Pedal Edema, Normal Capillary Refill Skin: Reports: Warm, Dry, Intact Neurological: Reports: No New Focal Deficit Psy/Mental Status: Reports: Alert, Normal Affect, Normal Mood
[2017-10-24] MEDS ORDERED: Tamsulosin 0.4 MG Cap.ER PO SCH (20:00)
[2017-10-24] MEDS ORDERED: Simvastatin 10 MG Tab PO SCH (20:00)
[2017-10-24] MEDS ORDERED: Divalproex Sodium 250 MG Tab.ER PO SCH (20:00)
== END 2017-10-24 15:25 ==
LOC: LL.ED 21:59 → UNDOADMOB 23:00 → LL.MS 23:00 → UNDODISOB 10-24 15:25
PROVIDERS: ADMIT Emergency Medicine; ATTEND Emergency Medicine
DX: N39.0 Urinary tract infection, site not specified (principal); R41.0 Disorientation, unspecified; E03.9 Hypothyroidism, unspecified; E11.9 Type 2 diabetes mellitus without complications; E66.9 Obesity, unspecified; E78.00 Pure hypercholesterolemia, unspecified; I10 Essential (primary) hypertension; J44.9 Chronic obstructive pulmonary disease, unspecified; K59.09 Other constipation; M19.90 Unspecified osteoarthritis, unspecified site; Z79.4 Long term (current) use of insulin; Z79.899 Other long term (current) drug therapy; Z88.6 Allergy status to analgesic agent; Z88.8 Allergy status to other drugs, medicaments and biological substances; Z79.2 Long term (current) use of antibiotics
CPT/HCPCS: 36415; 51702; 71045; 82962; 83605; 83880; 85025; 87040; 96361; 96365; 96375; 96376; 99285; A9270-GY; G0378; J1630; J1815-GY; J1956; J2060; J7030